=== PATIENT | female | born 1970 | race Caucasian/White ===

== ENCOUNTER 2017-12-16 19:19 | Emergency (ER) | payer BC ==
[2017-12-16 19:29] VITALS: BP 113/71
--- NOTE | 2017-12-16 19:32 | EDPHY ---
H & P Stated Complaint: Fever and sore throat Time Seen by Provider: 12/16/17 19:32 - Personal History LMP (Females 10-55): Over 28 Days Ago Current Tetanus/Diphtheria Vaccine: Yes Current Tetanus Diphtheria and Acellular Pertussis (TDAP): Yes - Medical/Surgical History Hx Asthma: No Hx Chronic Respiratory Disease: No Hx Diabetes: No Hx Cardiac Disease: No Hx Renal Disease: No Hx Cirrhosis: No Hx Alcoholism: No Hx HIV/AIDS: No Hx Splenectomy or Spleen Trauma: No Other PMH: lithotripsy,cholecystectomy, breast augmentation, tummy tuck, - Social History Smoking Status: Never smoked Constitutional: Initial Vital Signs Temperature (C) 39.4 C H 12/16/17 19:23 Heart Rate 130 H 12/16/17 19:23 Respiratory Rate 18 12/16/17 19:23 Blood Pressure 113/71 12/16/17 19:23 O2 Sat (%) 95 12/16/17 19:23 O2 Delivery Mode Room Air Allergies/Adverse Reactions: codeine Allergy (Verified 12/16/17 19:29) Sulfa (Sulfonamide Antibiotics) Allergy (Verified 12/16/17 19:29) tramadol Allergy (Verified 12/16/17 19:29) Home Medications: Medication Instructions Recorded Cephalexin [Keflex (RX)] 500 mg PO TID #30 cap 12/16/17 Ibuprofen [Motrin] 800 mg PO Q8 #20 tab 12/16/17 Lasix 12/16/17 Trileptal 12/16/17 Xanax 12/16/17 Medical Decision Making ED Course/Re-evaluation: CHIEF COMPLAINT: Sore throat HISTORY OF PRESENT ILLNESS: The patient is a 46 y/o female complaining of a waxing and waning sore throat onset 3 days ago. She first noticed mild pain on Monday that improved within 24 hours. Yesterday her pain returned and she developed associated hoarseness. Today her pain was worse and associated with a fever, mild cough, and myalgias. She took Tylenol 6.5 hours ago with temporary moderate improvement. She denies ear pain, dyspnea, chest pain, vomiting, abdominal pain, diarrhea, difficulty swallowing. REVIEW OF SYSTEMS: A 10 point review of systems was performed and is negative with the exception of the elements mentioned in the history of present illness. PHYSICAL EXAM: HR 130, BP, O2 Sat, RR. Temp noted 39.4C General Appearance: Alert, well hydrated, appropriate, and non-toxic appearing. Head: Atraumatic without scalp tenderness or obvious injury Eyes: Pupils equal, round, reactive to light and accommodation, EOMI, no trauma , no injection. Ears: Clear bilaterally, no perforation, normal landmarks Nose: Atraumatic, no rhinorrhea, clear. Throat: There is erythema without exudates, no lesions, normal tonsils, mucus membranes moist. Neck: Supple, nontender, no lymphadenopathy. Respiratory: No retractions, no distress, no wheezes, and no accessory muscle use. Lungs are clear to auscultation bilaterally. Cardiovascular: Regular rate and rhythm, no murmurs, rubs, or gallops. Good capillary refill all extremities. Gastrointestinal: Abdomen is soft, nontender, non-distended, no masses, no rebound, no guarding, no peritoneal signs. Musculoskeletal: Normal active ROM of all extremities, atraumatic. Neurological: Alert, appropriate, and interactive. Nonfocal. Skin: No rashes, good turgor, no nodules on palpation. Past medical history: leg edema of unknown etiology on Lasix, on Xanax Past surgical history: lithotripsy,cholecystectomy, breast augmentation, tummy tuck Family history: Noncontributory Social history: Lives in [place]. . DIFFERENTIAL DIAGNOSIS: The differential diagnosis for the patient's fever included but was not limited to bacterial pharyngitis, pneumonia, urinary tract infection, viral syndrome, meningitis, and sepsis. MEDICAL DECISION MAKING: Exam shows pharyngeal erythema indicating pharyngitis. Plan for treatment with 40g PO prednisone here, dose of Keflex and ibuprofen and discharge with script for Keflex and standard care instructions. Return precautions discussed. - Data Points Medications Given: Discontinued Medications Cephalexin HCl (Keflex) 500 mg PO EDNOW ONE PRN Reason: Protocol Stop: 12/16/17 20:01 Last Admin: 12/16/17 20:02 Dose: 500 mg Ibuprofen (Motrin) 600 mg PO EDNOW ONE Stop: 12/16/17 20:01 Last Admin: 12/16/17 20:02 Dose: 600 mg Prednisone (Prednisone) 40 mg PO EDNOW ONE Stop: 12/16/17 20:00 Last Admin: 12/16/17 20:02 Dose: 40 mg Departure - Departure Disposition: Home, Routine, Self-Care Clinical Impression: Bacterial pharyngitis Condition: Good Instructions: Cephalexin (By mouth), Pharyngitis (ED), Fever in Adults (ED) Additional Instructions: 1. Take Keflex as prescribed for infection. Be sure to complete the entire prescription even if you feel better. 2. Take 800mg ibuprofen (Motrin) every 8 hours for pain and fever over the next few days. 3. Follow up with primary care provider for unimproved symptoms over the next 2- [address] Sarmiento is a local flavorer you can follow up with if needed. Referrals: Kim Silver DO [Doctor of Osteopathy] - As per Instructions Jovanny Sarmiento MD [[facility] [place] [place] Primary Care Provider] - As per Instructions Prescriptions: Cephalexin [Keflex (RX)] 500 mg PO TID #30 cap Ibuprofen [Motrin] 800 mg PO Q8 #20 tab Report Scribed for: Erich Correa Report Scribed by: Maryellen Browning Date of Report: 12/16/17 Time of Report: 19:36
[2017-12-16] MEDS ORDERED: IBUPROFEN 600 MG TAB PO ONE ×2 (19:57→20:00)
[2017-12-16] MEDS ORDERED: CEPHALEXIN 500 MG CAP PO ONE ×2 (19:57→20:00)
[2017-12-16] MEDS ORDERED: predniSONE 20 MG TAB ONE (19:57)
[2017-12-16] MEDS ORDERED: predniSONE 20 MG TAB PO ONE (19:59)
== END 2017-12-16 20:25 | disposition home or self-care (01) ==
DX: J02.9 Acute pharyngitis, unspecified (principal)
CPT/HCPCS: J7512

== ENCOUNTER 2018-01-31 07:35 | Inpatient (IN) | payer BC ==
[2018-01-31] MEDS ORDERED: ONDANSETRON 4 MG/2 ML VIAL IVP ONE (08:09)
[2018-01-31] MEDS ORDERED: LORazepam 2 MG/ML INJ IVP ONE ×2 (08:25→10:43)
[2018-01-31 08:32] LABS: PLATELET COUNT 396 10^3/uL (150-400)
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
[2018-01-31] MEDS ORDERED: NS 1,000 ML IV ONE (08:55)
[2018-01-31] MEDS ORDERED: LORazepam 2 MG/ML INJ IVP PRN (12:45)
[2018-01-31] MEDS ORDERED: ONDANSETRON DISINTEGRATING 4 MG TAB PO PRN (12:45)
[2018-01-31] MEDS ORDERED: ONDANSETRON 4 MG/2 ML VIAL IVP PRN (12:45)
[2018-01-31] MEDS ORDERED: POTASSIUM CL 20 MEQ/15 ML UDCUP PO ONE (12:50)
[2018-01-31] MEDS: chlordiazePOXIDE 25 MG CAP PO SCH ×3 (13:29→20:23)
--- NOTE | 2018-01-31 13:44 | GHP ---
DATE OF ADMISSION: 01/31/2018 HISTORY OF PRESENT ILLNESS: The patient is a 47-year-old female with a history of anxiety, treated w ith 2 mg of Xanax four times daily. She has been prescribed this by a physician who previously had p racticed in the [facility] but subsequently moved out of state and providing her with prescrip tions. She began to run low on her on Xanax and she checked her prescription and the number was not included, and so she was worried that she would run out. This is complicated by the Day weeken d. Today is the Monday after . On Monday, she had normal doses and Monday she began to taper them, taking 3 mg at night, and then yesterday she just had 1 mg around 4 p.m. Last night she felt tremulous and anxious, and then this morning continued to feel so. She also had some diarrhea and some nausea. She drank a fair amount of alcohol last night, although she denies drinking alcohol this morning. She had a blood alcohol level of 80 this morning. She also has been taking Alleene for pain in her leg, and she has been self tapering those over time be cause, again, this prescription last as well. She actually was recently given a prescription for oxycodone, but she never filled it. The patient has a history of bipolar and has been on an SSRI in the past, but is not currently on the m. The psychiatrist's name is Dr. Kennedy Zamorano. REVIEW OF SYSTEMS: Complete 10-point review of systems conducted and negative except as noted in the HPI. PAST MEDICAL HISTORY: Chronic leg pain, panic, anxiety. SOCIAL HISTORY: She lives with her . No tobacco. 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 She has no children. A stepson stays there on Fridays. FAMILY HISTORY: Reviewed and unremarkable. ALLERGIES: Codeine, sulfa, tramadol. HOME MEDICATIONS: Tylenol, alprazolam 2 q.i.d., ibuprofen, oxcarbazepine, recently been off. Her la st opiates were last week. PHYSICAL EXAMINATION: PRESENTING VITALS: Temp 36.6, blood pressure 125/77, breathing 18 times a min [place], 98% on room air. GENERAL: No acute distress. HEENT: Sclerae anicteric. Oropharynx clear. M ucous membranes moist. NECK: Supple. No lymphadenopathy or JVD. LUNGS: Clear to auscultation timothy aterally. HEART: S1, S2. Tachycardic. ABDOMEN: Soft, nontender, nondistended. LOWER EXTREMITIES : No edema. Calves nontender. SKIN: Without rash. NEUROLOGIC: Nonfocal. LABS: Tylenol level 12. Benzos are none, negative. Alcohol level of 80 at 7:40 this morning. Sodi um 141, potassium 3.0, chloride 101, bicarb 20, BUN 40, creatinine 1.6. LFTs normal. Alkaline phosp hatase slightly elevated at 129. White count 6.2, hematocrit 46, platelets are 396 1000. There is n o imaging. I have discussed the case with Dr. Milka Sheffield. ASSESSMENT AND PLAN: A 47-year-old female with benzodiazepine withdrawal and probably resolving opia te withdrawal. 1. Benzodiazepine withdrawal. 2 mg four times a day of Xanax is a fairly hefty dose, especially in this 43 kg woman. She has been on this for years and I would anticipate her withdrawal would continu e. I will start her on Librium 25 three times daily. She received 2 mg of Ativan in the emergency d epartment. 2. Opiate withdrawal. I commend her decision to get off opiates. I have written for clonidine 0.1 twice daily scheduled. We will follow. 3. Hypokalemia. This is likely secondary to perhaps some vomiting. We will give her 40 mg of p.o. potassium. 4. Acute kidney injury, probably hypovolemic. We will continue the intravenous fluids that were sta rted in the emergency department. 5. Prophylaxis with Lovenox 30. DISPOSITION: Inpatient status. /[id number]/MODL
[2018-01-31] MEDS: ACETAMINOPHEN 325 MG TAB PO PRN (14:07)
--- NOTE | 2018-01-31 15:55 | ASMTLACE ---
LAN Acuity / Level of Answers: Yes Care: Did the patient have an inpatient admission? Comorbidities - select Answers: Opioid dependence all that apply / Chronic pain # of Emergency department Answers: 1-2 visits in the last 6 months Social determinants Answers: History of substance abuse (ETOH, street drugs, prescription drugs, etc.) Mental health diagnosis (anxiety, depression, pers onality disorders, etc.) Score: 14 Date Signed: 01/31/2018 03:54 PM Electronically Signed By:Kayley Main RN
--- NOTE | 2018-01-31 16:04 | PDMN ---
Medical Necessity Medical necessity: [facility] M595 Substance-Related Disorders: 47 y/o w/ acute benzodiazepine w/d and opiate w/d. RTC care with Librium and clonidine prescribed and cont to monitor as MD anticipates withdrawal will continue given the current doses she has been on for years. Pt w/ tremors, is tachy HR 125, labile BP SBG 80s-160s, Hypokalemia (K 3.0), acute kidney injury noted (cr 1.6) . IV fluids started.
--- NOTE | 2018-01-31 16:10 | ASMTCMCOM ---
CM Note CM Note Notes: Pt presented to the ED via EMS from home for benzodiazepine withdrawal symptoms. Pt states she has been taking 2mg of Xanax four times a day for many years. She has also been taking [place] 7.5/325 approx 6x/day. Her prescribing physician was psychiatrist Dr Kennedy Zamorano who used to live in [place] but is now in [place] but has still been providing pt w/rxns. Dr Zamorano is no longer able to provide prescriptions and so patient has been without [place] for several days and has tapered her Xanax down. Pt also states she drinks alcohol and "more than I should." Pt also has a history of bipolar disorder. Pt's , Micah, is at bedside. Pt is employed. Exact DC needs TBD; anticipate DC home w/family w/outpatient substance abuse resources, new psychiatrist referral and primary care follow-up. CM to follow. Date Signed: 01/31/2018 04:09 PM Electronically Signed By:Kayley Main RN
[2018-01-31] MEDS: NS 1,000 ML IV SCH (16:24)
[2018-01-31] MEDS: LORazepam 1 MG TAB PO PRN ×2 (16:53→21:41)
[2018-01-31] MEDS: OXcarbazepine 300 MG TAB PO SCH (20:22)
[2018-02-01] MEDS: NS 1,000 ML IV SCH ×2 (00:57→07:55)
[2018-02-01] MEDS: LORazepam 1 MG TAB PO PRN ×5 (02:34→21:49)
[2018-02-01] MEDS: chlordiazePOXIDE 25 MG CAP PO SCH (07:47)
[2018-02-01] MEDS: ENOXAPARIN 30 MG/0.3 ML SYR SC SCH (07:48)
--- NOTE | 2018-02-01 10:01 | HOSPPROG ---
Hospitalist Progress Note Assessment/Plan: 47 yo F w bipolar, severe anxiety, benzo withdrawal benzo withdrawal: improved dc librium, IV ativan anxiety: ideally she should be on an ssri states she had been on paxil and increased panic attacks DOES WISH TO STAY OFF XANAX i let her know we would not be prescribing xanax- 1. start klonopin 1 bid 2. start propranolol 10 tid 3. trazodone for sleep 4. needs competent outpatient psychiatrist 5. continue prn ativan for now, none on dc 6. elizabeth cormier to see today opiate withdrawal: appears to have resolved had stopped takking days prior ETHAN: pre renal, resolved dispo: stay today for med initiation Subjective: less tachycardic. spent 40' at bedside discussing plan of care Objective: Vital Signs Temp Pulse Resp BP Pulse Ox 36.8 C 103 H 19 99/78 L 97 02/01/18 07:39 02/01/18 08:00 02/01/18 08:00 02/01/18 08:00 02/01/18 08:00 Laboratory Results 02/01/18 04:14 01/31/18 02/01/18 02/02/18 05:59 05:59 05:59 Intake Total 3850 Balance 3850 - Physical Exam Constitutional: no apparent distress, other (mild anxiety) Eyes: PERRL, anicteric sclera Ears, Nose, Mouth, Throat: moist mucous membranes, hearing normal Cardiovascular: regular rate and rhythym, no murmur, rub, or gallop, No tachycardia Respiratory: no respiratory distress, no rales or rhonchi Gastrointestinal: normoactive bowel sounds, soft, non-tender abdomen Genitourinary: no bladder fullness, No hunt in urethra Skin: warm, normal color Musculoskeletal: full muscle strength Neurologic: AAOx3 Psychiatric: interacting appropriately ICD10 Worksheet Patient Problems: Problems Problem Status Onset Acute kidney injury Acute Alcohol abuse Acute Benzodiazepine withdrawal Acute
[2018-02-01] MEDS: clonazePAM 1 MG TAB PO SCH ×2 (11:03→21:11)
[2018-02-01] MEDS: PROPRANOLOL HCL 10 MG TAB PO SCH ×3 (11:04→21:11)
--- NOTE | 2018-02-01 16:05 | ASMTCMCOM ---
CM Note CM Note Notes: Pt was admited for benzo withdrawl, she also has a diagnosis of Bipolar disorder. She lives at home with her and works. She was seen by Roxie Valderrama today (see note) and will dc home w/support of her . Pt given resources by JESSI and will f/u outpt for ongoing benzo tapering care. DC Plan: Independent Date Signed: 02/01/2018 04:04 PM Electronically Signed By:Roxie Eduardo RN
[2018-02-01] MEDS ORDERED: traZODone 50 MG TAB PO SCH (21:00)
[2018-02-01] MEDS: OXcarbazepine 300 MG TAB PO SCH (21:13)
[2018-02-02] MEDS: LORazepam 1 MG TAB PO PRN ×3 (01:42→10:21)
[2018-02-02] MEDS: ACETAMINOPHEN 325 MG TAB PO PRN ×2 (01:43→12:57)
[2018-02-02] MEDS: PROPRANOLOL HCL 10 MG TAB PO SCH (09:44)
[2018-02-02] MEDS: clonazePAM 1 MG TAB PO SCH (09:44)
[2018-02-02] MEDS: ENOXAPARIN 30 MG/0.3 ML SYR SC SCH (09:45)
[2018-02-02] MEDS: chlordiazePOXIDE 25 MG CAP PO SCH ×2 (10:49→11:12)
--- NOTE | 2018-02-02 12:13 | ASMTCMCOM ---
CM Note CM Note Notes: Pt's left foot abscess was addressed in surgery on 01/31. He remains in significant pain. He has MRSA. His Type 1 diabetes does not appear to be under good control. He continues on IV antibiotics. CM will follow. D/C Plan: TBD Date Signed: 02/02/2018 12:12 PM Electronically Signed By:Gabi Cuevas
[2018-02-02 12:48] VITALS: BP 96/62
--- NOTE | 2018-02-02 15:11 | PDDCSUM ---
Discharge Summary Discharge Summary: Admission Date: 01/31/2018 Discharge Date: 02/02/2018 Consults: Psychiatry Hospital Problem List: 47 yo F w bipolar, severe anxiety, benzo withdrawal Benzo withdrawal: improved - Patient did not tolerate Klonopin with increased anxiety/agitation - Discussed case with Dr. Benson, Psychiatry this AM, who recommended switching to Librium 50 mg QID until patient is able to followup with PCP and establish with Psychiatry for titration off of medication - Patient to followup with PCP for titration off of Librium in conjunction withPsychiatry, patient has concern that if she is tapered off of Librium without other medications she will have uncontrolled anxiety anxiety: ideally she should be on an ssri states she had been on paxil and increased panic attacks DOES WISH TO STAY OFF XANAX Continue propranolol 10 tid Needs competent outpatient psychiatrist opiate withdrawal: appears to have resolved had stopped taking days prior ETHAN: pre renal, resolved Time spent on discharge >35 minutes with >50% of time spent on patient education and counseling
== END 2018-02-02 16:00 | disposition home or self-care (01) | DRG 897 ==
LOC: EDUNIT# → F3E 13:12
PROVIDERS: ADMIT Internal Medicine; ATTEND Internal Medicine
DX: F13.239 Sedative, hypnotic or anxiolytic dependence with withdrawal, unspecified (principal); N17.9 Acute kidney failure, unspecified; F11.23 Opioid dependence with withdrawal; E86.9 Volume depletion, unspecified; F41.9 Anxiety disorder, unspecified
CPT/HCPCS: 80305; 96374; 97161-GP; G0480; J1650; J2060; J2405

== ENCOUNTER 2018-02-02 23:51 | Emergency (ER) | payer BC ==
[2018-02-03] MEDS ORDERED: LORazepam 2 MG/ML INJ IVP ONE ×2 (01:09→02:10)
[2018-02-03] MEDS ORDERED: NS 1,000 ML IV ONE (01:09)
[2018-02-03] MEDS ORDERED: LORazepam 2 MG/ML INJ ONE (01:09)
--- NOTE | 2018-02-03 01:11 | EDPHY ---
H & P Stated Complaint: LOSS MOTOR SKILLS, XANAX W/D / D/C'D TODAY FROM INPT Time Seen by Provider: 02/03/18 01:00 HPI/ROS: HPI The patient presents with generalized weakness since she awoke from sleep several hours ago. The patient was admitted to the hospital from January 31 to for benzodiazepine withdrawal symptoms. Here she improved receiving IV Ativan and was transition to Librium 50 mg four times daily as well as propanolol. She went home from the hospital earlier today and was feeling well. When she went to bed she was feeling fine, however she awoke several hours ago feeling like her body was made out of Jell-O. She has been unable to walk and her had to carry her into the emergency department. She vomited once. She does not believe she has had any seizures. REVIEW OF SYSTEMS 10 systems were reviewed and negative with the exception of the elements mentioned in the history of present illness. PMHx: Bipolar disorder, history of anxiety Soc Hx: Lives with her PHYSICAL General Appearance: Alert, no distress Eyes: Pupils equal and round no pallor or injection ENT, Mouth: Mucous membranes moist Respiratory: There are no retractions, lungs are clear to auscultation Cardiovascular: Regular rate and rhythm Gastrointestinal: Abdomen is soft and non-tender, no masses, bowel sounds normal Neurological: A&O, moves all extremities, 5/5 strength in upper and lower extremities, normal finger to nose testing Skin: Warm and dry, no rashes Musculoskeletal: Neck is supple non tender Extremities: symmetrical, full range of motion Psychiatric: Patient is oriented X 3, there is no agitation Source: Patient Exam Limitations: No limitations - Personal History LMP (Females 10-55): Unknown Current Tetanus Diphtheria and Acellular Pertussis (TDAP): Yes - Medical/Surgical History Hx Asthma: No Hx Chronic Respiratory Disease: No Hx Diabetes: No Hx Cardiac Disease: No Hx Renal Disease: No Hx Cirrhosis: No Hx Alcoholism: No Hx HIV/AIDS: No Hx Splenectomy or Spleen Trauma: No Other PMH: lithotripsy,cholecystectomy, breast augmentation, tummy tuck, - Social History Smoking Status: Never smoked Constitutional: Initial Vital Signs Temperature (C) 36.9 C 02/03/18 00:00 Heart Rate 97 02/03/18 00:00 Respiratory Rate 16 02/03/18 00:00 Blood Pressure 100/73 02/03/18 00:00 O2 Sat (%) 95 02/03/18 00:00 O2 Delivery Mode Room Air Allergies/Adverse Reactions: codeine Allergy (Verified 12/16/17 19:29) Sulfa (Sulfonamide Antibiotics) Allergy (Verified 12/16/17 19:29) tramadol Allergy (Verified 12/16/17 19:29) Home Medications: Medication Instructions Recorded Acetaminophen [Tylenol 325mg (*)] 650 mg PO DAILY 01/31/18 Ibuprofen [Motrin (*)] 400 mg PO DAILY PRN 01/31/18 OXcarbazepine [Trileptal 300mg (*)] 1,200 mg PO HS #120 tab 02/02/18 Propranolol HCl [Inderal 10mg (*)] 10 mg PO TID #90 tab 02/02/18 chlordiazePOXIDE [Librium 25 mg 50 mg PO QID #240 cap 02/02/18 (*)] Medical Decision Making Differential Diagnosis: 47-year-old female, recently discharged from the hospital for benzodiazepine withdrawal presents with return of her symptoms, most prominently generalized weakness, shakiness, feelings like she may have a panic attack. It does not seem that she has had a seizure. She is taking Librium 50 mg four times daily currently as well as propanolol. Physical exam is unremarkable here and she has no motor weakness on her exam. I will treat her with Ativan and check basic labs. Labs were checked and were unremarkable. Patient was able to walk in the emergency department on several occasions with a normal gait. She was given Ativan twice with improvement in her symptoms. I have provided her with reassurance that she should be taking her Librium as prescribed and this medication should be appropriate to treat her benzodiazepine withdrawal. She was taking Xanax 8 mg daily so it may take some time for her to completely be out of her withdrawals. I observed her for about 6 hr and she had no seizures here. I will discharge her home where she lives with her . - Data Points Laboratory Results: Laboratory Results 02/03/18 00:10 02/03/18 00:10 02/03/18 02/03/18 02/03/18 02:09 00:10 00:10 WBC 8.17 10^3/uL 10^3/uL (3.80-9.50) RBC 4.82 10^6/uL 10^6/uL (4.18-5.33) Hgb 15.1 g/dL g/dL (12.6-16.3) Hct 41.7 % % (38.0-47.0) MCV 86.5 fL fL (81.5-99.8) MCH 31.3 pg pg (27.9-34.1) MCHC 36.2 g/dL g/dL (32.4-36.7) RDW 12.5 % % (11.5-15.2) Plt Count 345 10^3/uL 10^3/uL (150-400) MPV 10.1 fL fL (8.7-11.7) Neut % (Auto) 55.8 % % (39.3-74.2) Lymph % (Auto) 35.1 % % (15.0-45.0) [place] % (Auto) 7.2 % % (4.5-13.0) Eos % (Auto) 0.7 % % (0.6-7.6) Baso % (Auto) 1.0 % % (0.3-1.7) Nucleat RBC Rel Count 0.0 % % (0.0-0.2) Absolute Neuts (auto) 4.55 10^3/uL 10^3/uL (1.70-6.50) Absolute Lymphs (auto) 2.87 10^3/uL 10^3/uL (1.00-3.00) Absolute Monos (auto) 0.59 10^3/uL 10^3/uL (0.30-0.80) Absolute Eos (auto) 0.06 10^3/uL 10^3/uL (0.03-0.40) Absolute Basos (auto) 0.08 10^3/uL 10^3/uL (0.02-0.10) Absolute Nucleated RBC 0.00 10^3/uL 10^3/uL (0-0.01) Immature Gran % 0.2 % % (0.0-1.1) Immature Gran # 0.02 10^3/uL 10^3/uL (0.00-0.10) Sodium 137 mEq/L mEq/L (135-145) Potassium 3.3 mEq/L mEq/L (3.3-5.0) Chloride 99 mEq/L mEq/L (97-110) Carbon Dioxide 23 mEq/l mEq/l (22-31) Anion Gap 15 mEq/L mEq/L (8-16) BUN 32 mg/dL H mg/dL (7-23) Creatinine 1.0 mg/dL mg/dL (0.6-1.0) Estimated GFR 60 Glucose 163 mg/dL H mg/dL (70-100) Calcium 10.0 mg/dL mg/dL (8.5-10.4) Total Bilirubin 0.3 mg/dL mg/dL (0.1-1.4) AST 36 IU/L IU/L (14-46) ALT 32 IU/L IU/L (9-52) Alkaline Phosphatase 110 IU/L IU/L (38-126) Creatine Kinase 69 IU/L IU/L (0-156) Total Protein 8.3 g/dL H g/dL (6.3-8.2) Albumin 5.0 g/dL g/dL (3.5-5.0) Urine Color COLORLESS Urine Appearance CLEAR Urine pH 6.0 (5.0-7.5) Ur Specific [place] 1.003 (1.002-1.030) Urine Protein NEGATIVE (NEGATIVE) Urine Ketones NEGATIVE (NEGATIVE) Urine Blood NEGATIVE (NEGATIVE) Urine Nitrate NEGATIVE (NEGATIVE) Urine Bilirubin NEGATIVE (NEGATIVE) Urine Urobilinogen NEGATIVE EU EU (0.2-1.0) Ur Leukocyte Esterase NEGATIVE (NEGATIVE) Urine Glucose NEGATIVE (NEGATIVE) Ethyl Alcohol < 10 mg/dL mg/dL (0-10) Medications Given: Discontinued Medications Chlordiazepoxide HCl (Librium) 50 mg PO EDNOW ONE Stop: 02/03/18 05:09 Last Admin: 02/03/18 05:10 Dose: 50 mg Sodium Chloride (Ns) 1,000 mls @ 0 mls/hr IV EDNOW ONE; Wide Open PRN Reason: Protocol Stop: 02/03/18 01:10 Last Admin: 02/03/18 01:11 Dose: 1,000 mls Lorazepam (Ativan Injection) 1 mg IVP EDNOW ONE Stop: 02/03/18 01:10 Last Admin: 02/03/18 01:12 Dose: 1 mg Lorazepam (Ativan Injection) 1 mg IVP ONCE ONE Stop: 02/03/18 02:11 Last Admin: 02/03/18 02:22 Dose: 1 mg Departure - Departure Disposition: Home, Routine, Self-Care Clinical Impression: Weakness, Benzodiazepine withdrawal Condition: Good Instructions: Weakness (ED) Additional Instructions: Please continue to take your Librium and propanolol as prescribed. You should return to the emergency department if your worse in any way. If you experience these symptoms again, I do recommend that you take your Librium dose early and wait to see if this improves her symptoms. Referrals: Shana Andrade MD [Primary Care Provider] - As per Instructions
[2018-02-03 01:19] LABS: PLATELET COUNT 345 10^3/uL (150-400)
[2018-02-03 01:25] LABS: CREATINE KINASE 69 IU/L (0-156)
[2018-02-03] MEDS ORDERED: chlordiazePOXIDE 25 MG CAP PO ONE (05:08)
[2018-02-03 05:14] VITALS: BP 99/73
== END 2018-02-03 05:42 | disposition home or self-care (01) ==
DX: F13.20 Sedative, hypnotic or anxiolytic dependence, uncomplicated (principal); E86.9 Volume depletion, unspecified; F31.9 Bipolar disorder, unspecified
CPT/HCPCS: 96374; G0480; J2060

== ENCOUNTER 2018-02-08 14:14 | Inpatient (IN) | payer BC ==
[2018-02-08] MEDS ORDERED: NS 1,000 ML IV ONE ×3 (15:00→17:57)
[2018-02-08] MEDS ORDERED: LORazepam 2 MG/ML INJ IVP ONE ×2 (15:00→17:11)
[2018-02-08 15:21] LABS: PLATELET COUNT 283 10^3/uL (150-400)
[2018-02-08 15:29] LABS: INR 0.95 (0.83-1.16); PROTIME(PATIENT) 12.9 SEC (12.0-15.0)
[2018-02-08 15:39] LABS: CREATINE KINASE 60 IU/L (0-156)
--- NOTE | 2018-02-08 15:49 | EDPHY ---
H & P Stated Complaint: Sent here by PCP for creatinine of 1.94. Time Seen by Provider: 02/08/18 14:34 HPI/ROS: CHIEF COMPLAINT: Lab abnormalities, anxiety HISTORY OF PRESENT ILLNESS: This is a 47 year old female who has been seen in our ED on two occasions over past 2 weeks. Initially seen as she was withdrawling from xanax, which she had taken for 20 years. At that visit patient noted to have renal insufficiency with a creatinine of 1.6. This resolved and patient was discharged on librium as she had an allergic reaction to klonopin. She represented after discharge with ongoing symptoms of benzo withdrawl, but was treated in ED and discharged. Yesterday she saw her PCP who is helping with her withdrawl (utilizing a long acting xanax with a slow taper). Patient was informed today that her creatinine in the PCP office was 1.9. She reports ongoing significant nausea and diarrhea. Ongoing anxiety as well. No fever, chills, chest pain, shortness of breath, palpitations, urinary complaints, headache, lightheadedness. REVIEW OF SYSTEMS: A comprehensive 10 system review of systems was reviewed and is otherwise negative aside from elements mentioned in the history of present illness. PAST MEDICAL HISTORY: Benzodiazepine addiction, opiate addiction. SOCIAL HISTORY: Here with . Denies illicit drug use. VITAL SIGNS Reviewed by me. Initially hypotensive at 92/60 GENERAL: Well-developed, well-nourished, seems anxious. HEENT: Atraumatic. Eyes: No icterus, no injection. No nystagmus. Mouth: moist mucous membranes. No erythema or lesions. Neck: supple with no adenopathy. LUNGS: Clear to auscultation bilaterally, no wheezes, rhonchi or rales. CARDIAC: Regular rate and rhythm, no rubs, murmurs or gallops. ABDOMEN: Soft, nontender, nondistended, bowel sounds normal. BACK: No CVA tenderness. EXTREMITIES: No trauma. No edema. Range of motion is normal throughout. No tremor. NEURO: Alert and oriented, grossly nonfocal. SKIN: Warm and dry, no rash. PSYCHIATRIC: Normal mentation, anxious. - Personal History LMP (Females 10-55): Post Menopausal Current Tetanus Diphtheria and Acellular Pertussis (TDAP): Yes - Medical/Surgical History Hx Asthma: No Hx Chronic Respiratory Disease: No Hx Diabetes: No Hx Cardiac Disease: No Hx Renal Disease: No Hx Cirrhosis: No Hx Alcoholism: No Hx HIV/AIDS: No Hx Splenectomy or Spleen Trauma: No Other PMH: lithotripsy,cholecystectomy, breast augmentation, tummy tuck, - Social History Smoking Status: Never smoked Constitutional: Initial Vital Signs Temperature (C) 36.6 C 02/08/18 14:18 Heart Rate 75 02/08/18 14:18 Respiratory Rate 16 02/08/18 14:18 Blood Pressure 92/60 L 02/08/18 14:18 O2 Sat (%) 96 02/08/18 14:18 O2 Delivery Mode Room Air Allergies/Adverse Reactions: codeine Allergy (Verified 02/10/18 10:59) Rash Sulfa (Sulfonamide Antibiotics) Allergy (Verified 02/10/18 10:59) tramadol Allergy (Verified 02/10/18 10:59) Rash Home Medications: Medication Instructions Recorded Acetaminophen [Tylenol 325mg (*)] 325 - 650 mg PO Q6 PRN 01/31/18 Ibuprofen [Motrin (*)] 400 mg PO DAILY PRN 01/31/18 OXcarbazepine [Trileptal 300mg (*)] 1,200 mg PO HS #120 tab 02/02/18 Gabapentin [Neurontin 100 MG (*)] 300 mg PO TID #90 cap 02/10/18 LORazepam [Ativan (*)] 0.5 - 1 mg PO Q8HRS PRN #20 tab 02/10/18 LORazepam [Ativan (*)] 2 mg PO Q6H #56 tab 02/10/18 Potassium Chloride Po [Potassium 20 meq PO DAILY #30 udcup 02/10/18 Chloride 20 mg/15 ml (*)] Medical Decision Making ED Course/Re-evaluation: Iv placed. Normal saline and zofran administered. Patient received Ativan IV. Labs demonstrate a creatinine of 1.2, lipase of 467. Potassium at 2.4 was very delayed in being resulted. Once resulted, I discussed admission to the hospital for the patient. While initially reluctant to be admitted, patient and eventually agreed to inpatient monitoring of labs, intake and output, treatment of nausea and diarrhea. Course discussed with hospitalist service. Differential Diagnosis: Diff dx considered included benzo withdrawl syndrome, electrolyte abnormalities , panic attack, diarrhea, benzo dependency, dehydration. Consult/Admit Bed Type: [facility] - Data Points Laboratory Results: Laboratory Results 02/09/18 05:13 02/09/18 05:13 Medications Given: Discontinued Medications Gabapentin (Neurontin) 100 mg PO TID [facility] Stop: 08/07/18 21:59 Last Admin: 02/09/18 08:03 Dose: 100 mg Gabapentin (Neurontin) 300 mg PO TID [facility] Stop: 08/07/18 21:59 Last Admin: 02/10/18 08:40 Dose: 300 mg Sodium Chloride (Ns) 1,000 mls @ 0 mls/hr IV ONCE ONE; Wide Open PRN Reason: Protocol Stop: 02/08/18 15:01 Last Admin: 02/08/18 15:10 Dose: 1,000 mls Potassium Chloride (Potassium Cl 10 Meq (Premix)) 100 mls @ 100 mls/hr IV EDNOW ONE Stop: 02/08/18 17:23 Last Admin: 02/08/18 17:53 Dose: 100 mls Sodium Chloride (Ns) 1,000 mls @ 3,000 mls/hr IV ONCE ONE Stop: 02/08/18 17:02 Last Admin: 02/08/18 16:44 Dose: 1,000 mls Sodium Chloride (Ns) 1,000 mls @ 250 mls/hr IV ONCE ONE Stop: 02/08/18 21:56 Last Admin: 02/08/18 19:57 Dose: 1,000 mls Sodium Chloride (Ns) 1,000 mls @ 100 mls/hr IV CONT KOBE Stop: 08/07/18 19:44 Last Admin: 02/09/18 11:37 Dose: 1,000 mls Magnesium Sulfate/Dextrose (Magnesium Sulf 1 Gm (Premix)) 100 mls @ 100 mls/hr IV ONCE ONE Stop: 02/08/18 23:24 Last Admin: 02/08/18 22:56 Dose: 100 mls Sodium Chloride (Ns) 1,000 mls @ 1,000 mls/hr IV ONCE ONE Stop: 02/09/18 01:18 Last Admin: 02/09/18 00:31 Dose: 1,000 mls Sodium Chloride (Ns) 1,000 mls @ 1,000 mls/hr IV ONCE ONE Stop: 02/09/18 01:44 Last Admin: 02/09/18 00:31 Dose: Not Given Magnesium Sulfate/Dextrose (Magnesium Sulf 1 Gm (Premix)) 100 mls @ 100 mls/hr IV ONCE ONE Stop: 02/09/18 07:34 Last Admin: 02/09/18 07:03 Dose: 100 mls Calcium Gluconate 1 gm/ (Dextrose) 60 mls @ 120 mls/hr IV ONCE ONE Stop: 02/09/18 07:29 Last Admin: 02/09/18 08:02 Dose: 60 mls Potassium Chloride/Sodium Chloride (Ns W/ 20 Kcl/L) 1,000 mls @ 75 mls/hr IV CONT KOBE Stop: 02/10/18 01:04 Last Admin: 02/09/18 13:11 Dose: 1,000 mls Magnesium Sulfate (Magnesium Sulf 2 Gm (Premix)) 50 mls @ 50 mls/hr IV ONCE ONE Stop: 02/09/18 12:45 Last Admin: 02/09/18 13:11 Dose: 50 mls Calcium Gluconate 1 gm/ (Dextrose) 60 mls @ 120 mls/hr IV ONCE ONE Stop: 02/10/18 08:44 Last Admin: 02/10/18 08:43 Dose: 60 mls Lorazepam (Ativan Injection) 1 mg IVP EDNOW ONE Stop: 02/08/18 15:01 Last Admin: 02/08/18 15:15 Dose: 1 mg Lorazepam (Ativan Injection) 1 mg IVP EDNOW ONE Stop: 02/08/18 17:12 Last Admin: 02/08/18 17:30 Dose: 1 mg Lorazepam (Ativan) 0.5 - 1 mg PO Q8HRS PRN PRN Reason: Anxiety, Able to Take PO Stop: 08/07/18 17:56 Last Admin: 02/10/18 10:54 Dose: 1 mg Lorazepam (Ativan) 2 mg PO Q6H KOBE Stop: 08/07/18 19:44 Last Admin: 02/10/18 08:41 Dose: 2 mg Ondansetron HCl (Zofran) 4 mg IVP EDNOW ONE Stop: 02/08/18 16:26 Last Admin: 02/08/18 16:42 Dose: 4 mg Oxcarbazepine (Trileptal) 1,200 mg PO HS KOBE Stop: 08/07/18 20:59 Last Admin: 02/09/18 22:43 Dose: 1,200 mg Potassium Chloride (Klor-Con) 40 meq PO ONCE ONE Stop: 02/08/18 16:25 Last Admin: 02/08/18 16:42 Dose: 40 meq Potassium Chloride (Klor-Con) 40 meq PO ONCE ONE PRN Reason: Protocol Stop: 02/08/18 22:28 Last Admin: 02/08/18 23:04 Dose: 40 meq Potassium Chloride (Klor-Con) 10 - 40 meq PO ONCE ONE PRN Reason: Protocol Stop: 02/09/18 06:34 Last Admin: 02/09/18 07:03 Dose: 40 meq Potassium Chloride (Klor-Con) 20 meq PO ONCE ONE PRN Reason: Protocol Stop: 02/09/18 19:59 Last Admin: 02/09/18 21:40 Dose: 20 meq Potassium Chloride (Klor-Con) 10 - 40 meq PO ONCE ONE PRN Reason: Protocol Stop: 02/10/18 07:30 Last Admin: 02/10/18 08:42 Dose: 40 meq Potassium Chloride (Potassium Chloride Oral Liquid) 20 meq PO DAILY KOBE Stop: 08/09/18 09:29 Last Admin: 02/10/18 10:31 Dose: 20 meq Departure - Departure Disposition: [facility] Clinical Impression: Hypokalemia, Benzodiazepine dependence Condition: Good
[2018-02-08] MEDS ORDERED: POTASSIUM Cl (KCl) 100 ML IV ONE (16:24)
[2018-02-08] MEDS ORDERED: POTASSIUM CL 20 MEQ TAB PO ONE (16:24)
[2018-02-08] MEDS ORDERED: ONDANSETRON 4 MG/2 ML VIAL IVP ONE (16:25)
[2018-02-08] MEDS ORDERED: PROMETHAZINE HCL 25 MG/ML INJ IVP PRN (17:57)
[2018-02-08] MEDS ORDERED: oxyCODONE IR 5 MG TAB PO PRN (17:57)
[2018-02-08] MEDS ORDERED: ONDANSETRON DISINTEGRATING 4 MG TAB PO PRN (17:57)
[2018-02-08] MEDS ORDERED: PROTOCOL K PHOSPHATE 1 DOSE IV PRN (17:57)
[2018-02-08] MEDS ORDERED: PROTOCOL POTASSIUM 1 DOSE MISC PRN (17:57)
[2018-02-08] MEDS ORDERED: PROTOCOL CALCIUM 1 DOSE IV PRN (17:57)
[2018-02-08] MEDS ORDERED: PROTOCOL MAGNESIUM 1 DOSE IV PRN (17:57)
[2018-02-08] MEDS ORDERED: HYDROCODONE/APAP 5/325 TAB PO PRN (17:57)
[2018-02-08] MEDS ORDERED: ACETAMINOPHEN 325 MG TAB PO PRN (17:57)
[2018-02-08] MEDS ORDERED: LORazepam 2 MG/ML INJ IVP PRN (17:57)
[2018-02-08] MEDS ORDERED: ONDANSETRON 4 MG/2 ML VIAL IVP PRN (17:57)
[2018-02-08] MEDS ORDERED: LORazepam 1 MG TAB ONE (19:34)
[2018-02-08] MEDS: LORazepam 1 MG TAB PO SCH (19:35)
--- NOTE | 2018-02-08 20:29 | PDGENHP ---
History and Physical - Chief Complaint n/v/d, xanax w/d - History of Present Illness 47 yo F with hx of anxiety and bipolar 2 for which 20 years ago she was started on xanax by her psychiatrist. He ultimately had her on a dose of 2mg four times per day. She states she was never told that this was a medication that should be used only in the short term, nor was she ever warned that stopping this medication could lead to severe and life threatening withdrawal. Last week she ran out of her medication as the doctor had forgotten to put a number of pills on the prescription form, she was out of xanax for 2 days when she developed essentially inability to ambulate, profound n/v and perhaps suffered a seizure. She was admitted to the hospital and treated for benzo withdrawal, and started on librium 50 mg qid as an alternative to the xanax. She very much wishes to get off benzodiazepines completely, but also to do this safely and with minimal side effects. She was taking the librium at home but despite that was continuing to have significant nausea and vomiting. She was having her withdrawal managed by her PCP Dr. Alicia until she was able to f/u with a new psychiatrist. She notes that taking the librium feels as if she has taken nothing, she was unable to work and was sent home for persistent n/v/diarrhea. She intermittently will become so weak that she cannot walk and is uncertain if she may have had a seizure again. She had labs yesterday per the request of her PCP and was noted to have a creatinine of 1.9 and was sent here for further evaluation, in the ER she was noted to have a K of 2.4 today with an improved creatinine of 1.2 History Information - Allergies/Home Medication List Allergies/Adverse Reactions: codeine Allergy (Unverified 02/08/18 18:33) Rash Sulfa (Sulfonamide Antibiotics) Allergy (Unverified 02/08/18 15:09) tramadol Allergy (Unverified 02/08/18 18:33) Rash Home Medications: Acetaminophen [Tylenol 325mg (*)] 325 - 650 mg PO Q6 PRN 01/31/18 [Last Taken Unknown] Ibuprofen [Motrin (*)] 400 mg PO DAILY PRN 01/31/18 [Last Taken 02/06/18] I have personally reviewed and updated: family history, medical history, social history, surgical history - Past Medical History psychiatric history - Surgical History Reports: no pertinent surgical hx - Family History Positive for: non-pertinent - Social History Smoking Status: Never smoked Alcohol Use: Rarely Drug Use: None Additional social history: , 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 Review of Systems Review of Systems: ROS: 10pt was reviewed & negative except for what was stated in HPI & below Physical Exam Physical Exam: Temp Pulse Resp BP Pulse Ox 36.8 C 71 14 87/54 L 95 02/08/18 19:22 02/08/18 19:22 02/08/18 19:22 02/08/18 19:22 02/08/18 19:22 Constitutional: appears nourished, uncomfortable Eyes: PERRL, anicteric sclera Ears, Nose, Mouth, Throat: moist mucous membranes, hearing normal Cardiovascular: no murmur, rub, or gallop, tachycardia, No edema Respiratory: no respiratory distress, no rales or rhonchi, clear to auscultation Gastrointestinal: normoactive bowel sounds, soft, non-tender abdomen Genitourinary: no bladder tenderness Skin: warm, normal color Musculoskeletal: full muscle strength Neurologic: AAOx3 Psychiatric: interacting appropriately, not anxious, not encephalopathic Lab Data & Imaging Review 02/08/18 15:10 02/08/18 15:10 WBC 5.73 10^3/uL (3.80-9.50) 02/08/18 15:10 RBC 4.30 10^6/uL (4.18-5.33) 02/08/18 15:10 Hgb 13.6 g/dL (12.6-16.3) 02/08/18 15:10 Hct 37.3 % (38.0-47.0) L 02/08/18 15:10 MCV 86.7 fL (81.5-99.8) 02/08/18 15:10 MCH 31.6 pg (27.9-34.1) 02/08/18 15:10 MCHC 36.5 g/dL (32.4-36.7) 02/08/18 15:10 RDW 12.8 % (11.5-15.2) 02/08/18 15:10 Plt Count 283 10^3/uL (150-400) 02/08/18 15:10 MPV 9.6 fL (8.7-11.7) 02/08/18 15:10 Neut % (Auto) 57.6 % (39.3-74.2) 02/08/18 15:10 Lymph % (Auto) 28.6 % (15.0-45.0) 02/08/18 15:10 [place] % (Auto) 11.0 % (4.5-13.0) 02/08/18 15:10 Eos % (Auto) 1.6 % (0.6-7.6) 02/08/18 15:10 Baso % (Auto) 1.0 % (0.3-1.7) 02/08/18 15:10 Nucleat RBC Rel Count 0.0 % (0.0-0.2) 02/08/18 15:10 Absolute Neuts (auto) 3.30 10^3/uL (1.70-6.50) 02/08/18 15:10 Absolute Lymphs (auto) 1.64 10^3/uL (1.00-3.00) 02/08/18 15:10 Absolute Monos (auto) 0.63 10^3/uL (0.30-0.80) 02/08/18 15:10 Absolute Eos (auto) 0.09 10^3/uL (0.03-0.40) 02/08/18 15:10 Absolute Basos (auto) 0.06 10^3/uL (0.02-0.10) 02/08/18 15:10 Absolute Nucleated RBC 0.00 10^3/uL (0-0.01) 02/08/18 15:10 Immature Gran % 0.2 % (0.0-1.1) 02/08/18 15:10 Immature Gran # 0.01 10^3/uL (0.00-0.10) 02/08/18 15:10 PT 12.9 SEC (12.0-15.0) 02/08/18 15:10 INR 0.95 (0.83-1.16) 02/08/18 15:10 Sodium 136 mEq/L (135-145) 02/08/18 15:10 Potassium 2.4 mEq/L (3.3-5.0) L* 02/08/18 15:10 Chloride 99 mEq/L (97-110) 02/08/18 15:10 Carbon Dioxide 23 mEq/l (22-31) 02/08/18 15:10 Anion Gap 14 mEq/L (8-16) 02/08/18 15:10 BUN 25 mg/dL (7-23) H 02/08/18 15:10 Creatinine 1.2 mg/dL (0.6-1.0) H 02/08/18 15:10 Estimated GFR 49 02/08/18 15:10 Glucose 101 mg/dL (70-100) H 02/08/18 15:10 Calcium 9.3 mg/dL (8.5-10.4) 02/08/18 15:10 Total Bilirubin 0.5 mg/dL (0.1-1.4) 02/08/18 15:10 Conjugated Bilirubin 0.1 mg/dL (0.0-0.5) 02/08/18 15:10 Unconjugated Bilirubin 0.4 mg/dL (0.0-1.1) 02/08/18 15:10 AST 25 IU/L (14-46) 02/08/18 15:10 ALT 33 IU/L (9-52) 02/08/18 15:10 Alkaline Phosphatase 100 IU/L (38-126) 02/08/18 15:10 Creatine Kinase 60 IU/L (0-156) 02/08/18 15:10 Troponin I < 0.012 ng/mL (0.000-0.034) 02/08/18 15:10 Total Protein 7.8 g/dL (6.3-8.2) 02/08/18 15:10 Albumin 4.7 g/dL (3.5-5.0) 02/08/18 15:10 Lipase 467 IU/L (23-300) H 02/08/18 15:10 Beta HCG, Qual NEGATIVE 02/08/18 15:10 Urine Color PALE YELLOW 02/08/18 15:37 Urine Appearance CLEAR 02/08/18 15:37 Urine pH 6.0 (5.0-7.5) 02/08/18 15:37 Ur Specific [place] 1.005 (1.002-1.030) 02/08/18 15:37 Urine Protein NEGATIVE (NEGATIVE) 02/08/18 15:37 Urine Ketones NEGATIVE (NEGATIVE) 02/08/18 15:37 Urine Blood NEGATIVE (NEGATIVE) 02/08/18 15:37 Urine Nitrate NEGATIVE (NEGATIVE) 02/08/18 15:37 Urine Bilirubin NEGATIVE (NEGATIVE) 02/08/18 15:37 Urine Urobilinogen NEGATIVE EU (0.2-1.0) 02/08/18 15:37 Ur Leukocyte Esterase NEGATIVE (NEGATIVE) 02/08/18 15:37 Urine RBC 1-3 /hpf (0-3) 02/08/18 15:37 Urine WBC 3-5 /hpf (0-3) H 02/08/18 15:37 Ur Epithelial Cells TRACE /lpf (NONE-1+) 02/08/18 15:37 Urine Mucus TRACE /lpf (NONE-1+) 02/08/18 15:37 Urine Glucose NEGATIVE (NEGATIVE) 02/08/18 15:37 Stool Occult Bld Scrn NEGATIVE (NEGATIVE) 02/08/18 15:02 Urine Opiates Screen NEGATIVE (NEGATIVE) 02/08/18 15:37 Acetaminophen < 10 mcg/mL (10-30) L 02/08/18 15:10 Urine Barbiturates NEGATIVE (NEGATIVE) 02/08/18 15:37 Ur Phencyclidine Scrn NEGATIVE (NEGATIVE) 02/08/18 15:37 Ur Amphetamine Screen NEGATIVE (NEGATIVE) 02/08/18 15:37 U Benzodiazepines Scrn NON-NEGATIVE (NEGATIVE) H 02/08/18 15:37 Urine Cocaine Screen NEGATIVE (NEGATIVE) 02/08/18 15:37 U Marijuana (THC) Screen NEGATIVE (NEGATIVE) 02/08/18 15:37 Ethyl Alcohol < 10 mg/dL (0-10) 02/08/18 15:10 Visualized and Interpreted EKG results: Yes EKG Interpretation: Positive for: normal sinsus rhythm Assessment & Plan Assessment: 47 yo F admitted with n/v/d and hypokalemia and yue in setting of benzodiazepine withdrawal # benzodiazepine withdrawal: was transitioned from xanax 2 q6 to librium 50 q 6 which should be roughly a 15% decrease however really was unable to tolerate that with persitent n/v/diarrhea and weakness, perhaps recurrent seizure. She does feel better after receiving ativan and will attempt to transition to ativan 2 q 6 for now which is roughly equal dosing to the xanax in longer acting form. If she tolerates this would begin a very slow taper given the length of time she has been dependent on xanax--consider a 10% decrease per week. Discussed with her at length that going "cold turkey" is not safe and if a doctor recommends this, she should find another doctor. Will dc propranolol given hypotension and add low dose gabapentin--can increase relatively quickly if effective without significant side effects. # yue: 2/2 above, will continue IVF overnight and recheck in am # severe hypokalemia: will replete with electrolyte protocol, 2/2 n/v/d in setting of benzo w/d # anxiety: patient interested in non-benzo options and is looking for a new psychiatrist, sxs currently somewhat severe but patient is managing them well, will add gabapentin as above, continue ativan scheduled for now # observation status # Patient new to my care, care plan reviewed with ER doctor as above. Old records reviewed and summarized as above.
[2018-02-08] MEDS ORDERED: chlordiazePOXIDE 25 MG CAP PO SCH (21:00)
[2018-02-08] MEDS: GABAPENTIN 100 MG CAP PO SCH (21:38)
[2018-02-08] MEDS: OXcarbazepine 300 MG TAB PO SCH (21:38)
[2018-02-08] MEDS ORDERED: PROPRANOLOL HCL 10 MG TAB PO SCH (22:00)
[2018-02-08] MEDS ORDERED: MAGNESIUM SULF 1 GM/DEXTROSE 100 ML IV ONE (22:25)
[2018-02-08] MEDS ORDERED: POTASSIUM CL 10 MEQ TAB PO ONE (22:27)
[2018-02-09] MEDS ORDERED: NS 1,000 ML IV ONE ×2 (00:19→00:45)
[2018-02-09] MEDS: NS 1,000 ML IV SCH ×2 (01:59→11:37)
[2018-02-09] MEDS: LORazepam 1 MG TAB PO SCH ×4 (01:59→19:57)
[2018-02-09 05:39] LABS: PLATELET COUNT 254 10^3/uL (150-400)
[2018-02-09] MEDS ORDERED: POTASSIUM CL 10 MEQ TAB PO ONE ×2 (06:33→19:58)
[2018-02-09] MEDS ORDERED: CALCIUM GLUCONATE 50 ML IV ONE (06:34)
[2018-02-09] MEDS ORDERED: MAGNESIUM SULF 1 GM/DEXTROSE 100 ML IV ONE (06:35)
[2018-02-09] MEDS ORDERED: CALCIUM GLUCONATE 1 GM in D5W 50 ML IV ONE (07:00)
[2018-02-09] MEDS: GABAPENTIN 100 MG CAP PO SCH ×3 (08:03→21:40)
[2018-02-09] MEDS ORDERED: NS W/ 20 KCl/L 1,000 ML IV SCH (11:45)
--- NOTE | 2018-02-09 11:45 | HOSPPROG ---
Hospitalist Progress Note Assessment/Plan: 47 yo F admitted with n/v/d and hypokalemia and yue in setting of benzodiazepine withdrawal # benzodiazepine withdrawal: -was transitioned from xanax 2 q6 to librium 50 q 6 which should be roughly a 15 % decrease however really was unable to tolerate that with persitent n/v/ diarrhea and weakness, perhaps recurrent seizure. -Cont ativan 2 q 6 for now which is roughly equal dosing to the xanax in longer acting form. If she tolerates this would begin a very slow taper given the length of time she has been dependent on xanax-- on this current regimen she is getting 8mg total of Ativan. Would consider decreasing by 1 mg weekly -cont additional Benzo's PRN. She has not needed any thus far # yue: 2/2 above, resolved. Still looks dehydrated, will cont IVF but provide KCl with it as well # severe hypokalemia: will replete with electrolyte protocol, 2/2 n/v/d in setting of benzo w/d -will provide Mg now for goal of 2.0 # anxiety: patient interested in non-benzo options and is looking for a new psychiatrist, sxs currently somewhat severe but patient is managing them well, will add gabapentin as above, continue ativan scheduled for now -Gabapentin increased to 300mg TID Change to inpatient status Pt is new to my care Subjective: tolerating Ativan. Still with some anxiety but has not needed PRN. Objective: Vital Signs Temp Pulse Resp BP Pulse Ox 36.4 C 77 16 92/52 L 98 02/09/18 07:17 02/09/18 07:17 02/09/18 07:17 02/09/18 07:17 02/09/18 07:17 Laboratory Results 02/09/18 05:13 02/09/18 05:13 02/08/18 02/09/18 02/10/18 05:59 05:59 05:59 Intake Total 6884 Output Total 3600 Balance 3284 PT 12.9 SEC (12.0-15.0) 02/08/18 15:10 INR 0.95 (0.83-1.16) 02/08/18 15:10 - Physical Exam Constitutional: no apparent distress Eyes: PERRL Ears, Nose, Mouth, Throat: moist mucous membranes Cardiovascular: regular rate and rhythym, No edema Respiratory: no respiratory distress, no rales or rhonchi, clear to auscultation Gastrointestinal: normoactive bowel sounds, soft, non-tender abdomen Skin: warm Neurologic: AAOx3 Psychiatric: interacting appropriately, not anxious, not encephalopathic Lymph, Heme, Immunologic: No petechiae ICD10 Worksheet Patient Problems: Problems Problem Status Onset Acute kidney injury Acute Alcohol abuse Acute
[2018-02-09] MEDS ORDERED: MAGNESIUM SULF 2 GM/WATER 50 ML IV ONE (11:46)
--- NOTE | 2018-02-09 14:29 | PDMN ---
Medical Necessity Medical necessity: Change to inpt as of 02/09/18 @ 11:41. Pt meets inpt criteria per MD order and MCG M-326, Renal Failure, Acute. 47 y/o admitted w/nausea, vomiting, diarrhea, dehydration, severe hypokalemia, and acute kidney injury in setting of benzodiazepine withdrawl, persistent hypotension (last BP 84/58). Most recent K level 2.9, electrolyte protocol, IVF, anticipate>2MN for ongoing med nec monitoring/treatment.
[2018-02-09] MEDS: OXcarbazepine 300 MG TAB PO SCH (22:43)
[2018-02-09] MEDS: LORazepam 0.5 MG TAB PO PRN (22:45)
[2018-02-10] MEDS: LORazepam 1 MG TAB PO SCH ×2 (02:18→08:41)
[2018-02-10] MEDS ORDERED: POTASSIUM CL 10 MEQ TAB PO ONE (07:29)
[2018-02-10] MEDS ORDERED: CALCIUM GLUCONATE 50 ML IV ONE (07:30)
[2018-02-10] MEDS ORDERED: CALCIUM GLUCONATE 1 GM in D5W 50 ML IV ONE (08:15)
[2018-02-10] MEDS: GABAPENTIN 100 MG CAP PO SCH (08:40)
[2018-02-10] MEDS ORDERED: POTASSIUM CL 20 MEQ/15 ML UDCUP PO SCH (09:30)
[2018-02-10] MEDS: LORazepam 0.5 MG TAB PO PRN (10:54)
[2018-02-10 11:57] VITALS: BP 95/58
--- NOTE | 2018-02-10 12:18 | PDDCSUM ---
Discharge Summary Discharge Summary: 47 yo F admitted with n/v/d and hypokalemia and yue in setting of benzodiazepine withdrawal. Please see below for details per problem list. She will have f/u with her PCP on Monday. She has been provided Ativan for her initial week of WD protocol. Additional scripts or adjustments will be per her PCP. DDX # benzodiazepine withdrawal: -was transitioned from xanax 2 q6 to librium 50 q 6 which should be roughly a 15 % decrease however really was unable to tolerate that with persitent n/v/ diarrhea and weakness, perhaps recurrent seizure. -We have started Ativan 2mg q 6hr for now which is roughly equal dosing to the xanax in longer acting form. If she tolerates this would begin a very slow taper given the length of time she has been dependent on xanax-- on this current regimen she is getting 8mg total of Ativan. Would consider decreasing by 1 mg weekly. she has been given a total of #56, 1 mg pills -She has needed some break through Ativan and she will cont 0.5mg - 1mg q 4 hrs as needed. She has been given a total of #20 0.5mg pills -further mgmt per her PCP which she will see on Monday # yue: 2/2 above, resolved. # severe hypokalemia: on daily potassium # anxiety: -patient interested in non-benzo options and is looking for a new psychiatrist -Gabapentin 300mg TID. Could increase to 600mg TID on Monday if anxiety is an issue Exam: NAD AAOX3 RRR CTA B S/NT/ND NOT CURRENTLY ANXIOUS MEDS: SEE MED REC F/U: PER ABOVE TOTAL TIME SPENT ON D/C IS 35 MINS
--- NOTE | 2018-02-10 13:25 | ASDISCHSUM ---
Discharge Information Plan Status:Home with No Needs Medically Cleared to Leave:02/10/2018 Discharge Date:02/10/2018 CM D/C Disposition:Home, Routine, Self-Care ADT D/C Disposition:Home, Routine, Self-Care Projected Discharge Date:02/10/2018 Transportation at D/C:Family Discharge Delay Reason: Follow-Up Date:02/10/2018 Discharge Slot: Final Diagnosis: Placement Information Patient Contact Information Contact Name:LYNN Relationship:Connor Address:[address] Phone: City:[place] Alternate Phone: State/Zip Code:[place] [address] Email: Financial Information Financial Class:BCOP Primary Plan Desc:BC OF ID Primary Plan Number:[id number] Secondary Plan Desc: Secondary Plan Number: Assessment Information Case Management Discharge Plan Note Case Management Discharge Discharge Order Complete? Answers: Yes Patient to Obtain Answers: via Family Medications Transportation Arranged Answers: Family/Friends Family Notified Answers: Yes Notes: pt phoned Discharge Comments Notes: Spoke with pt in the room. Pt to discharge home independently with and is comfortable with this plan. Pt has plan to meet with GP weekly to manage panic disorder until new psychiatrist is able to see her. No further CM needs noted at this time. CM available should needs arise. D/C Plan: Home independently Date Signed: 02/10/2018 01:23 PM Electronically Signed By:Elaine Blanchard Intervention Information
--- NOTE | 2018-02-10 15:32 | ASMTLACE ---
LAN Length of stay for Answers: 1 day current admission Acuity / Level of Answers: Yes Care: Did the patient have an inpatient admission? Comorbidities - select Answers: Opioid dependence all that apply / Chronic pain Other Notes: Bipolar II, Panic Disorder # of Emergency department Answers: 3-4 visits in the last 6 months Social determinants Answers: Mental health diagnosis (anxiety, depression, pers onality disorders, etc.) Score: 15 Date Signed: 02/10/2018 03:31 PM Electronically Signed By:Elaine Blanchard
--- NOTE | 2018-02-10 15:40 | ASMTCMCOM ---
CM Note CM Note Notes: Pt's chart from both this admission and last admission reviewed for d/c planning. CM also met with Pt. Pt is a 47 y/o female with a hx of bipolar 2 and anxiety who is experiencing withdrawl from prescribed benzos. Pt wants to manage her anxiety without benzos and was last here 01/31 when she was treated for benzo withdrawal. At that time she was seen by Frances Valderrama, and a plan for Pt to seek a new psychiatrist and therapy to address anxiety was agreed to. Her withdrawal became unmanageable at home and she returned to the hospital for additional support. The CM spent time with her discussing her anxiety and the possibility that it is related to past traumas that she hexperienced in childood. It was strongly recommended that she seek a therapist who has EMDR and possibly CBT training. A name of a therapist was given to her, Manuela Davis LPC, along with a contact number. She was also encouraged to contact her insurance with a request for covered therapists. Once her medical symptoms become manageable she will begin to consider her resources for psychiatry and therapy. No other CM needs have been identified. CM to follow if needs change. D/C Plan: Independent Date Signed: 02/10/2018 03:39 PM Electronically Signed By:Gabi Cuevas
--- NOTE | 2018-02-13 23:16 | CPEKG ---
Test Reason : OPEN Blood Pressure : / mmHG Vent. Rate : 070 BPM Atrial Rate : 070 BPM P-R Int : 210 ms QRS Dur : 107 ms QT Int : 399 ms P-R-T Axes : 105 075 080 degrees QTc Int : 431 ms Sinus rhythm Prolonged MO interval Confirmed by Araceli Hoffmann ([id number]) on 02/13/2018 11:15:52 PM Referred By: Confirmed By:Araceli Hoffmann
== END 2018-02-10 13:15 | disposition home or self-care (01) | DRG 683 ==
LOC: F3E 18:26 → OBSVTOIN 02-09 11:41
PROVIDERS: ADMIT Internal Medicine; ATTEND Internal Medicine
DX: N17.9 Acute kidney failure, unspecified (principal); F13.239 Sedative, hypnotic or anxiolytic dependence with withdrawal, unspecified; E87.6 Hypokalemia; F41.8 Other specified anxiety disorders; E86.0 Dehydration
CPT/HCPCS: 80305; 96365; G0378; G0480; J0610; J2060; J2405; J3475; J3480

== ENCOUNTER 2018-02-20 15:57 | Emergency (ER) | payer BC ==
[2018-02-20] MEDS ORDERED: NS 1,000 ML IV ONE (16:04)
--- NOTE | 2018-02-20 16:08 | EDPHY ---
H & P Time Seen by Provider: 02/20/18 16:06 HPI/ROS: HPI CHIEF COMPLAINT: Anxiety, panic attack, possible benzodiazepine withdrawal HISTORY OF PRESENT ILLNESS: 47-year-old female, has history panic attacks and generalized anxiety disorder, was recently hospitalized in early January for anxiety, additionally benzodiazepine withdrawal, nausea vomiting and diarrhea and acute kidney injury. She presents emergency room by ambulance from her primary care doctor's office he has been adjusting her Ativan. She takes 2 mg Ativan 4 times a day. She sees her PCP regularly or weekly for benzodiazepine refill. She presents emergency room stating she feels very anxious, panic attack, and is requesting Ativan here. She denies any chest pain or shortness of breath. She does feel tremulous. Past Medical History: Generalized anxiety disorder, panic attack, recent hospitalization for benzodiazepine withdrawal Past Surgical History: Recent surgery Social History: Daily benzo dependency. Family History: Noncontributory ROS REVIEW OF SYSTEMS: 10 Systems were reviewed and negative with the exception of the elements mentioned in the history of present illness. Exam Constitutional anxious, triage nursing summary reviewed, vital signs reviewed, awake/alert. Eyes normal conjunctivae and sclera, EOMI, PERRLA. HENT normal inspection, atraumatic, moist mucus membranes, no epistaxis, neck supple/ no meningismus, no raccoon eyes. Respiratory clear to auscultation bilaterally, normal breath sounds, no respiratory distress, no wheezing. Cardiovascular rate normal, regular rhythm, no murmur, no edema, distal pulses normal. Gastrointestinal soft, non-tender, no rebound, no guarding, normal bowel sounds, no distension, no pulsatile mass. Genitourinary no CVA tenderness. Musculoskeletal no midline vertebral tenderness, full range of motion, no calf swelling, no tenderness of extremities, no meningismus, good pulses, neurovascularly intact. Skin pink, warm, & dry, no rash, skin atraumatic. Neurologic normal neurological exam no focal neuro deficit, steady gait, no instability, awake, alert and oriented x 3, AAOx3, moves all 4 extremities equally, motor intact, sensory intact, CN II-XII intact, normal cerebellar, normal vision, normal speech. Psychiatric anxious. Heme/Lymph/Immune no lymphadenopathy. Differential Diagnosis: Includes but is not limited to in a particular order acute anxiety, panic attack, electrolyte disturbance, dehydration, acute kidney injury Medical Decision Making: Plan for this patient IV establishment IV fluid bolus , cardiac monitoring, check basic electrolytes. Re-evaluation: CT scan head without contrast called to me by Dr. Olivo. Negative for bleed. Patient is repeatedly asking for benzodiazepines. At this time I have declined to give her any has had concerned that she may be taking too many. She did ambulate well to the bathroom without any difficulty with steady gait. After explained that I would not be giving her benzos here in emergency room she became upset, and requested to leave. The patient's electrolytes are appropriate. CT scan of her head is unremarkable for acute bleed. Is noted the patient's LFTs are slightly elevated. I do recommend she follows up with primary care doctor about this. I did recommend she stay further in the emergency room for further evaluation including urine drug screen, IV hydration, and re-evaluation however she is declining and signing out against medical advice. I do recommend that she be very careful about how much benzodiazepine she takes. At this time she denies suicidal or homicidal ideation. Denies feeling depressed. Does state she feels anxious. And would like more benzodiazepines here in the emergency room. Patient understands the risk of leaving against medical advice without further observation and evaluation in the emergency room. She understands risk of morbidity, mortality. 1950: After long discussion the patient did end up staying in the emergency room and was re-evaluated at 4 hours No evidence of significant withdrawal. She has a steady stable gait. Her boyfriend at bedside she is requesting discharge home. She understands she will not get any further benzodiazepines. I do recommend that she follows up closely with primary care doctor and helps come off for benzodiazepine slowly. At this time no evidence withdrawal. 1950: patient requesting discharge. Electrolytes are appropriate. Vital signs stable. Source: Patient, EMS - Medical/Surgical History Hx Asthma: No Hx Chronic Respiratory Disease: No Hx Diabetes: No Hx Cardiac Disease: No Hx Renal Disease: No Hx Cirrhosis: No Hx Alcoholism: No Hx HIV/AIDS: No Hx Splenectomy or Spleen Trauma: No Other PMH: lithotripsy,cholecystectomy, breast augmentation, tummy tuck, - Social History Smoking Status: Never smoked Constitutional: Initial Vital Signs Temperature (C) 36.4 C 02/20/18 16:00 Heart Rate 90 02/20/18 16:00 Respiratory Rate 20 02/20/18 16:00 Blood Pressure 114/72 02/20/18 16:00 O2 Sat (%) 92 02/20/18 16:00 O2 Delivery Mode Room Air Allergies/Adverse Reactions: codeine Allergy (Verified 02/10/18 10:59) Rash Sulfa (Sulfonamide Antibiotics) Allergy (Verified 02/10/18 10:59) tramadol Allergy (Verified 02/10/18 10:59) Rash Home Medications: Medication Instructions Recorded Acetaminophen [Tylenol 325mg (*)] 325 - 650 mg PO Q6 PRN 01/31/18 Ibuprofen [Motrin (*)] 400 mg PO DAILY PRN 01/31/18 OXcarbazepine [Trileptal 300mg (*)] 1,200 mg PO HS #120 tab 02/02/18 LORazepam [Ativan (*)] 0.5 - 1 mg PO Q8HRS PRN #20 tab 02/10/18 LORazepam [Ativan (*)] 2 mg PO Q6H #56 tab 02/10/18 Potassium Chloride Po [Potassium 20 meq PO DAILY #30 udcup 02/10/18 Chloride 20 mg/15 ml (*)] Medical Decision Making - Diagnostics Imaging Results: Imaging Impressions Head CT 02/20/18 16:09 Impression: 1. Normal CT brain without contrast. 2. Consider MRI of the brain, if there is continued clinical concern. Findings and recommendations discussed with Emergency Department physician, Yo Samaniego MD at 17:04 hour, 02/20/2018. Final report concurs with initial preliminary interpretation. - Data Points Laboratory Results: Laboratory Results 02/20/18 16:00 02/20/18 16:00 02/20/18 02/20/18 02/20/18 17:40 16:00 16:00 WBC RBC Hgb Hct MCV MCH MCHC RDW Plt Count MPV Neut % (Auto) Lymph % (Auto) [place] % (Auto) Eos % (Auto) Baso % (Auto) Nucleat RBC Rel Count Absolute Neuts (auto) Absolute Lymphs (auto) Absolute Monos (auto) Absolute Eos (auto) Absolute Basos (auto) Absolute Nucleated RBC Immature Gran % Immature Gran # Sodium Potassium Chloride Carbon Dioxide Anion Gap BUN Creatinine Estimated GFR Glucose Calcium Magnesium Total Bilirubin Conjugated Bilirubin Unconjugated Bilirubin AST ALT Alkaline Phosphatase Creatine Kinase Total Protein Albumin Beta HCG, Qual NEGATIVE Urine Color PALE YELLOW Urine Appearance CLEAR Urine pH 6.0 (5.0-7.5) Ur Specific [place] 1.009 (1.002-1.030) Urine Protein NEGATIVE (NEGATIVE) Urine Ketones NEGATIVE (NEGATIVE) Urine Blood NEGATIVE (NEGATIVE) Urine Nitrate NEGATIVE (NEGATIVE) Urine Bilirubin NEGATIVE (NEGATIVE) Urine Urobilinogen NEGATIVE EU EU (0.2-1.0) Ur Leukocyte Esterase NEGATIVE (NEGATIVE) Urine Glucose NEGATIVE (NEGATIVE) Urine Opiates Screen NEGATIVE (NEGATIVE) Urine Barbiturates NEGATIVE (NEGATIVE) Ur Phencyclidine Scrn NEGATIVE (NEGATIVE) Ur Amphetamine Screen NEGATIVE (NEGATIVE) U Benzodiazepines Scrn NON-NEGATIVE H (NEGATIVE) Urine Cocaine Screen NEGATIVE (NEGATIVE) U Marijuana (THC) Screen NEGATIVE (NEGATIVE) Ethyl Alcohol < 10 mg/dL mg/dL (0-10) 02/20/18 02/20/18 16:00 16:00 WBC 5.28 10^3/uL 10^3/uL (3.80-9.50) RBC 4.76 10^6/uL 10^6/uL (4.18-5.33) Hgb 14.9 g/dL g/dL (12.6-16.3) Hct 43.3 % % (38.0-47.0) MCV 91.0 fL fL (81.5-99.8) MCH 31.3 pg pg (27.9-34.1) MCHC 34.4 g/dL g/dL (32.4-36.7) RDW 12.6 % % (11.5-15.2) Plt Count 310 10^3/uL 10^3/uL (150-400) MPV 9.8 fL fL (8.7-11.7) Neut % (Auto) 58.9 % % (39.3-74.2) Lymph % (Auto) 30.9 % % (15.0-45.0) [place] % (Auto) 8.5 % % (4.5-13.0) Eos % (Auto) 0.6 % % (0.6-7.6) Baso % (Auto) 0.9 % % (0.3-1.7) Nucleat RBC Rel Count 0.0 % % (0.0-0.2) Absolute Neuts (auto) 3.11 10^3/uL 10^3/uL (1.70-6.50) Absolute Lymphs (auto) 1.63 10^3/uL 10^3/uL (1.00-3.00) Absolute Monos (auto) 0.45 10^3/uL 10^3/uL (0.30-0.80) Absolute Eos (auto) 0.03 10^3/uL 10^3/uL (0.03-0.40) Absolute Basos (auto) 0.05 10^3/uL 10^3/uL (0.02-0.10) Absolute Nucleated RBC 0.00 10^3/uL 10^3/uL (0-0.01) Immature Gran % 0.2 % % (0.0-1.1) Immature Gran # 0.01 10^3/uL 10^3/uL (0.00-0.10) Sodium 141 mEq/L mEq/L (135-145) Potassium 3.5 mEq/L mEq/L (3.3-5.0) Chloride 100 mEq/L mEq/L (97-110) Carbon Dioxide 27 mEq/l mEq/l (22-31) Anion Gap 14 mEq/L mEq/L (8-16) BUN 43 mg/dL H mg/dL (7-23) Creatinine 1.2 mg/dL H mg/dL (0.6-1.0) Estimated GFR 49 Glucose 90 mg/dL mg/dL (70-100) Calcium 10.0 mg/dL mg/dL (8.5-10.4) Magnesium 2.0 mg/dL mg/dL (1.6-2.3) Total Bilirubin 0.4 mg/dL mg/dL (0.1-1.4) Conjugated Bilirubin 0.1 mg/dL mg/dL (0.0-0.5) Unconjugated Bilirubin 0.3 mg/dL mg/dL (0.0-1.1) AST 68 IU/L H IU/L (14-46) ALT 72 IU/L H IU/L (9-52) Alkaline Phosphatase 128 IU/L H IU/L (38-126) Creatine Kinase 79 IU/L IU/L (0-156) Total Protein 8.6 g/dL H g/dL (6.3-8.2) Albumin 5.0 g/dL g/dL (3.5-5.0) Beta HCG, Qual Urine Color Urine Appearance Urine pH Ur Specific [place] Urine Protein Urine Ketones Urine Blood Urine Nitrate Urine Bilirubin Urine Urobilinogen Ur Leukocyte Esterase Urine Glucose Urine Opiates Screen Urine Barbiturates Ur Phencyclidine Scrn Ur Amphetamine Screen U Benzodiazepines Scrn Urine Cocaine Screen U Marijuana (THC) Screen Ethyl Alcohol Medications Given: Discontinued Medications Sodium Chloride (Ns) 1,000 mls @ 0 mls/hr IV EDNOW ONE; Wide Open PRN Reason: Protocol Stop: 02/20/18 16:05 Last Admin: 02/20/18 16:13 Dose: 1,000 mls Departure - Departure Disposition: Against Medical Advice Clinical Impression: Benzodiazepine dependence Condition: Good Instructions: Anxiety (ED) Additional Instructions: 1. Return emergency room if you have any worsening symptoms 2. Please follow up closely with her primary care doctor Referrals: Patient,NotPresent [Unknown] - As per Instructions
[2018-02-20 16:10] LABS: PLATELET COUNT 310 10^3/uL (150-400)
[2018-02-20 16:25] LABS: CREATINE KINASE 79 IU/L (0-156)
[2018-02-20 19:57] VITALS: BP 122/68
== END 2018-02-20 19:57 | disposition home or self-care (01) ==
LOC: EDUNIT#
DX: F13.20 Sedative, hypnotic or anxiolytic dependence, uncomplicated (principal); E86.9 Volume depletion, unspecified; R94.5 Abnormal results of liver function studies; F41.1 Generalized anxiety disorder
CPT/HCPCS: 80305; G0480

== ENCOUNTER 2018-02-26 09:28 | Inpatient (IN) | payer BC ==
[2018-02-26] MEDS ORDERED: NS 1,000 ML IV ONE (10:08)
[2018-02-26] MEDS ORDERED: LORazepam 2 MG/ML INJ IVP ONE ×2 (10:09→11:12)
[2018-02-26] MEDS ORDERED: ONDANSETRON 4 MG/2 ML VIAL ONE (10:22)
--- NOTE | 2018-02-26 10:23 | EDPHY ---
General Time Seen by Provider: 02/26/18 10:09 Narrative: CHIEF COMPLAINT: "Benzo withdrawal" HISTORY OF PRESENT ILLNESS: Patient presents by private vehicle with her spouse with complaints of benzodiazepine withdrawal and "my motor skills arent working."Patient reports that she has been on high dose of Ativan and previous benzodiazepines for many years due to panic disorder and bipolar disorder. She says that she was recently on 4 mg of Ativan every 6 hr until yesterday. Her primary care physician yesterday dropped her to 2 mg of Ativan every 6 hr. She says that over the past 12 hr she has felt very shaky, and "it is hard for me to control at arms and legs. It is hard for me to walk. My motor skills are not working. " at bedside denies any description of seizure like activity. She has no chest pain or shortness of breath. She has felt very nauseated but not actively vomiting. She has had several episodes of this in the past, each of which she was admitted to this hospital for. She has had monitored tapers in the past. She has no other associated complaints or modifying factors REVIEW OF SYSTEMS: 10 systems were reviewed and negative with the exception of the elements mentioned in the history of present illness. PCP: [facility], Dr. Andrade SPECIALISTS: None currently PAST MEDICAL HISTORY: Panic disorder, bipolar II, anxiety PAST SURGICAL HISTORY: No recent surgeries. Remote lithotripsy, cholecystectomy, breast augmentation and abdominal liposuction SOCIAL HISTORY: Nonsmoker. Lives independently with her spouse. FAMILY HISTORY: Noncontributory EXAMINATION: General Appearance: Alert, no distress, tremulous Head: normocephalic, atraumatic Eyes: Pupils equal and round, no conjunctival pallor or injection ENT, Mouth: Mucous membranes moist Neck: Normal inspection, supple, non-tender Respiratory: Lungs are clear to auscultation Cardiovascular: Regular rate and rhythm. No murmur. Gastrointestinal: Abdomen is soft and nontender Back: non-tender, no bony abnormalities Neurological: GCS 15. A&O, nonfocal, strength is symmetric but 4/5 in all 4 extremities. Light sensory symmetric. Mild difficulty with [id number]. No pronator drift. Skin: Warm and dry, no rash Extremities: Nontender, no pedal edema Psychiatric: Mood and affect normal DIFFERENTIAL DIAGNOSES: Including but not limited to benzodiazepine withdrawal, benzo dependency, dehydration, acute kidney injury, electrolyte disturbance, CVA MDM: 10:10 a.m. Possible early benzo withdrawal with no signs of seizure activity. She is tremulous with no focal deficits on her neuro examination. She is awake and alert. She is mildly tachycardic. She will be placed on a telemetry monitor. Laboratory studies be obtained. I have ordered Ativan IV, IV fluid and will recheck shortly. 10:45 a.m. Patient re-evaluated. IV has been placed in Ativan will be administered. 11:10 a.m. Patient re-evaluated. Patient was unable to ambulate to the restroom on her own and required nursing assistance with wheelchair. Her laboratory studies are within normal limits. At this time she feels no improvement from the 1 mg Ativan. I have ordered a 2nd mg of Ativan. I will discuss with Dr. Rodriguez and re-evaluate. 11:25 a.m. Case discussed with hospitalist Kriss Sampson, FAVIO. She will admit the patient to Dr. Wall. She requests a medical-surgical bed. She is admitted inpatient status, in stable condition. Patient and spouse are agreeable to this plan SUPERVISION: Patient was independently examined, but I discussed the case with my secondary supervising physician Dr. Rodriguez CONSULTATION: None - History Smoking Status: Never smoked - Objective Vital Signs: Initial Vital Signs Temperature (C) 98.4 F 02/26/18 09:32 Heart Rate 108 H 02/26/18 09:32 Respiratory Rate 18 02/26/18 09:32 Blood Pressure 96/68 L 02/26/18 09:32 O2 Sat (%) 96 02/26/18 09:32 O2 Delivery Mode Room Air Allergies/Adverse Reactions: codeine Allergy (Verified 02/26/18 09:35) Rash Sulfa (Sulfonamide Antibiotics) Allergy (Verified 02/26/18 09:35) tramadol Allergy (Verified 02/26/18 09:35) Rash Home Medications: Medication Instructions Recorded Acetaminophen [Tylenol 325mg (*)] 325 - 650 mg PO Q6 PRN 01/31/18 Ibuprofen [Motrin (*)] 400 mg PO DAILY PRN 01/31/18 OXcarbazepine [Trileptal 300mg (*)] 1,200 mg PO HS #120 tab 02/02/18 LORazepam [Ativan (*)] 0.5 - 1 mg PO Q8HRS PRN #20 tab 02/10/18 LORazepam [Ativan (*)] 2 mg PO Q6H #56 tab 02/10/18 Potassium Chloride Po [Potassium 20 meq PO DAILY #30 udcup 02/10/18 Chloride 20 mg/15 ml (*)] Trileptal 02/26/18 Departure - Departure Disposition: [facility] Inpatient Acute Clinical Impression: Benzodiazepine withdrawal Qualifiers: Complication of substance-induced condition: with unspecified complication Qualified Code(s): F13.239 - Sedative, hypnotic or anxiolytic dependence with withdrawal, unspecified Condition: Good Referrals: Shana Andrade MD [Primary Care Provider] - As per Instructions
[2018-02-26] MEDS ORDERED: ONDANSETRON 4 MG/2 ML VIAL IVP ONE (10:25)
[2018-02-26 10:31] LABS: PLATELET COUNT 315 10^3/uL (150-400)
[2018-02-26] MEDS ORDERED: ACETAMINOPHEN 325 MG TAB PO PRN (13:07)
[2018-02-26] MEDS ORDERED: ONDANSETRON DISINTEGRATING 4 MG TAB PO PRN (13:07)
[2018-02-26] MEDS ORDERED: ONDANSETRON 4 MG/2 ML VIAL IVP PRN (13:07)
--- NOTE | 2018-02-26 13:34 | PDGENHP ---
History and Physical - Chief Complaint benzo withdrawal - History of Present Illness 47yo F with bipolar d/o, severe anxiety with benzodiazepine dependence presents with motor difficulty, nausea/vomiting consistent with prior episodes of benzo withdrawal. She is unsure if she had a seizure but doesn't think so. She has been hospitalized twice recently at this hospital for the same. She was discharged on 02/10 with script for 1 week of ativan 2mg q6h with plan for outpatient ativan taper. She saw her PCP, Dr Andrade, the following week who, per patient report, had accidentally prescribed ativan 4mg q6h which the patient took for [address] Andrade then prescribed ativan 1mg q6h which she started yesterday but immediately began to have typical withdrawal symptoms. She drank several glasses of wine last night to quell her anxiety. She was having difficulty with coordination and walking this AM so came to ED where she was noted to be in early benzo withdrawal for which she is being admitted. History Information - Allergies/Home Medication List Allergies/Adverse Reactions: codeine Allergy (Verified 02/26/18 09:35) Rash Sulfa (Sulfonamide Antibiotics) Allergy (Verified 02/26/18 11:40) Rash tramadol Allergy (Verified 02/26/18 09:35) Rash I have personally reviewed and updated: family history, medical history, social history, surgical history - Past Medical History psychiatric history Additional medical history: bipolar disorder, anxiety, panic disorder, benzodiazepine dependence - Surgical History Additional surgical history: cholecystectomy - Family History Positive for: non-pertinent - Social History Smoking Status: Never smoked Alcohol Use: Occasionally Drug Use: None Additional social history: , 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 Review of Systems Review of Systems: ROS: 10pt was reviewed & negative except for what was stated in HPI & below Physical Exam Physical Exam: Temp Pulse Resp BP Pulse Ox 37.1 C 85 18 107/66 94 02/26/18 12:28 02/26/18 12:28 02/26/18 12:28 02/26/18 12:28 02/26/18 12:28 Constitutional: no apparent distress, appears nourished, not in pain Eyes: PERRL, anicteric sclera, EOMI, other (no nystagmus) Ears, Nose, Mouth, Throat: moist mucous membranes, hearing normal, ears appear normal, no oral mucosal ulcers Cardiovascular: regular rate and rhythym, no murmur, rub, or gallop, No edema Respiratory: no respiratory distress, no rales or rhonchi, clear to auscultation Gastrointestinal: normoactive bowel sounds, soft, non-tender abdomen, no palpable masses Genitourinary: no bladder fullness, no bladder tenderness Skin: warm, normal color, no rashes or abrasions, no fluctuance, no induration, No mottled Musculoskeletal: full muscle strength, no muscle tenderness, normal joint ROM, no joint effusions Neurologic: AAOx3, sensation intact bilaterally, CN II-XII Intact, No weakness, No numbness Psychiatric: other (tearful throughout encounter) Lab Data & Imaging Review 02/26/18 10:19 02/26/18 10:19 WBC 9.09 10^3/uL (3.80-9.50) 02/26/18 10:19 RBC 4.52 10^6/uL (4.18-5.33) 02/26/18 10:19 Hgb 14.3 g/dL (12.6-16.3) 02/26/18 10:19 Hct 39.9 % (38.0-47.0) 02/26/18 10:19 MCV 88.3 fL (81.5-99.8) 02/26/18 10:19 MCH 31.6 pg (27.9-34.1) 02/26/18 10:19 MCHC 35.8 g/dL (32.4-36.7) 02/26/18 10:19 RDW 12.2 % (11.5-15.2) 02/26/18 10:19 Plt Count 315 10^3/uL (150-400) 02/26/18 10:19 MPV 9.8 fL (8.7-11.7) 02/26/18 10:19 Neut % (Auto) 77.3 % (39.3-74.2) H 02/26/18 10:19 Lymph % (Auto) 14.5 % (15.0-45.0) L 02/26/18 10:19 [place] % (Auto) 6.8 % (4.5-13.0) 02/26/18 10:19 Eos % (Auto) 0.4 % (0.6-7.6) L 02/26/18 10:19 Baso % (Auto) 0.6 % (0.3-1.7) 02/26/18 10:19 Nucleat RBC Rel Count 0.0 % (0.0-0.2) 02/26/18 10:19 Absolute Neuts (auto) 7.02 10^3/uL (1.70-6.50) H 02/26/18 10:19 Absolute Lymphs (auto) 1.32 10^3/uL (1.00-3.00) 02/26/18 10:19 Absolute Monos (auto) 0.62 10^3/uL (0.30-0.80) 02/26/18 10:19 Absolute Eos (auto) 0.04 10^3/uL (0.03-0.40) 02/26/18 10:19 Absolute Basos (auto) 0.05 10^3/uL (0.02-0.10) 02/26/18 10:19 Absolute Nucleated RBC 0.00 10^3/uL (0-0.01) 02/26/18 10:19 Immature Gran % 0.4 % (0.0-1.1) 02/26/18 10:19 Immature Gran # 0.04 10^3/uL (0.00-0.10) 02/26/18 10:19 Sodium 141 mEq/L (135-145) 02/26/18 10:19 Potassium 3.4 mEq/L (3.3-5.0) 02/26/18 10:19 Chloride 102 mEq/L (97-110) 02/26/18 10:19 Carbon Dioxide 28 mEq/l (22-31) 02/26/18 10:19 Anion Gap 11 mEq/L (8-16) 02/26/18 10:19 BUN 29 mg/dL (7-23) H 02/26/18 10:19 Creatinine 1.0 mg/dL (0.6-1.0) 02/26/18 10:19 Estimated GFR 60 02/26/18 10:19 Glucose 90 mg/dL (70-100) 02/26/18 10:19 Calcium 8.6 mg/dL (8.5-10.4) 02/26/18 10:19 Magnesium 1.9 mg/dL (1.6-2.3) 02/26/18 10:19 Beta HCG, Qual NEGATIVE 02/26/18 10:19 Assessment & Plan Assessment: 47yo F with bipolar d/o, severe anxiety with benzodiazepine dependence presents with motor incoordination, nausea/vomiting consistent with prior episodes of benzo withdrawal after being tapered down in outpatient setting. Plan: #Benzodiazepine withdrawal: Acute. Patient reports PCP had prescribed incorrect dose of ativan which caused her to go into withdrawal. This is suspicious activity and concerning for aberrant behavior on the patient's part. She tried librium during past hospitalization but didn't tolerate 2/2 hypotension. I will put her back on ativan at prior dose. She will require a prolonged taper. - Schedule ativan 2mg PO q6h (this was previous dose when discharged from hospital 02/10) - Will also make available ativan 0.5mg PO q8h PRN - Continue gabapentin 300mg TID - Pharmacy to check PDMP - Will discuss with psychiatry; she currently does not have outpatient psychiatrist - Seizure precautions #Bipolar d/o - Continue home trileptal #Hypokalemia - Replete Diet: regular VTE ppx: SCDs Code: full Dispo: Admit under inpatient status as reasonable medical necessity will require stay >2 midnights.
[2018-02-26] MEDS: LORazepam 1 MG TAB PO SCH ×2 (14:04→20:03)
--- NOTE | 2018-02-26 15:07 | PDMN ---
Medical Necessity [place] [facility] [id number]; 2 days: pt with bipolar disorder, severe anxiety with benzodiazepine dependence presents with N/ V, difficulty walking /coordination, pt requiring prolonged tapering, Sz precautions, anticipate > 2 MN
--- NOTE | 2018-02-26 15:25 | ASMTCMCOM ---
CM Note CM Note Notes: Chart reviewed. Patient with known anxiety disorder, bipolar disorder on benzodiazepines with active withdrawal symptoms admitted via ED. Lives with her . Unclear whether she has psychiatric support for anxiety. No physical needs for HHC noted at this time. CM to follow. Plan: TBD Date Signed: 02/26/2018 03:25 PM Electronically Signed By:Guerita Diop RN
[2018-02-26] MEDS: GABAPENTIN 300 MG CAP PO SCH ×2 (16:18→20:03)
[2018-02-26] MEDS: LORazepam 0.5 MG TAB PO PRN (17:19)
[2018-02-26] MEDS ORDERED: OXcarbazepine 300 MG TAB PO SCH (21:00)
[2018-02-27] MEDS: LORazepam 1 MG TAB PO SCH ×4 (01:02→19:47)
[2018-02-27] MEDS: LORazepam 0.5 MG TAB PO PRN ×2 (03:59→21:47)
[2018-02-27] MEDS: GABAPENTIN 300 MG CAP PO SCH (08:45)
[2018-02-27] MEDS: POTASSIUM CL 20 MEQ/15 ML UDCUP PO SCH (08:45)
[2018-02-27] MEDS ORDERED: POTASSIUM CL 20 MEQ/15 ML UDCUP PO ONE (08:49)
[2018-02-27] MEDS ORDERED: PROTOCOL POTASSIUM 1 DOSE MISC PRN (08:49)
--- NOTE | 2018-02-27 14:39 | HOSPPROG ---
Hospitalist Progress Note Assessment/Plan: 47yo F with bipolar d/o, severe anxiety/panic disorder with benzodiazepine dependence presents with evidence of early benzo withdrawal. #Benzodiazepine withdrawal: Stable on current regimen. She does have some insight into her addiction. - Ativan 2mg PO Q6h scheduled with 0.5mg PO q8h PRN available - Discontinue gabapentin (wasn't taking at home) - This is her 3rd admission for same in last month. I think we will continue this cycle of re-admissions unless we pursue a detoxification program. Patient is amenable to this. Will contact psychiatry re: resources. #Bipolar d/o - Continue home trileptal, dose confirmed with pharmacy #Hypokalemia - Replete, put on K protocol Diet: regular VTE ppx: SCDs Code: full Dispo: Continue inpatient status as unsafe to discharge at this time with benzodiazepine addiction and no follow up plan in place. Subjective: Had some hallucinations, felt loopy and confused after taking trileptal and gabapentin last night. Had some more nausea today. Much less motor difficulty. No seizures. Objective: Vital Signs Temp Pulse Resp BP Pulse Ox 37.2 C 75 18 106/73 97 02/27/18 13:59 02/27/18 13:59 02/27/18 13:59 02/27/18 13:59 02/27/18 13:59 Laboratory Results 02/27/18 03:53 02/26/18 02/27/18 02/28/18 05:59 05:59 05:59 Intake Total 1700 Balance 1700 - Physical Exam Constitutional: no apparent distress, appears nourished, not in pain Eyes: PERRL, anicteric sclera, EOMI Ears, Nose, Mouth, Throat: moist mucous membranes, hearing normal, ears appear normal, no oral mucosal ulcers Cardiovascular: regular rate and rhythym, no murmur, rub, or gallop Respiratory: no respiratory distress, no rales or rhonchi, clear to auscultation Gastrointestinal: normoactive bowel sounds, soft, non-tender abdomen, no palpable masses Skin: no rashes or abrasions, no fluctuance, no induration Neurologic: AAOx3, sensation intact bilaterally Psychiatric: interacting appropriately, not encephalopathic, thought process linear, anxious, other (tearful) ICD10 Worksheet Patient Problems: Problems Problem Status Onset Benzodiazepine withdrawal Acute Acute kidney injury Acute Alcohol abuse Acute Hypokalemia Acute
--- NOTE | 2018-02-27 16:33 | ASMTCMCOM ---
CM Note CM Note Notes: Patient plan of care reviewed in interdisciplinary rounds. 47 year old female having unsuccessful tapering from benzodiazepines. This is her 3rd hospitalization in a short period of time. Per Dr. Wall she and her are open to discussion regarding inpatient treatment. Informational materials provided to patient and she states that she has been to [facility] in the past and was not inclined to go there again. She is looking for reassurance that her medication will not be withdrawn but tapered. Discussed that would be unlikely in the setting of inpatient detoxification. Emotional support provided to her and her . They will discuss options and hopefully formulate a plan. CM available should other needs arise. Plan: TBD Date Signed: 02/27/2018 04:30 PM Electronically Signed By:Guerita Diop RN
[2018-02-27] MEDS ORDERED: POTASSIUM CL 10 MEQ TAB PO ONE (21:00)
[2018-02-28] MEDS: LORazepam 1 MG TAB PO SCH ×3 (01:09→13:29)
[2018-02-28] MEDS: OXcarbazepine 300 MG TAB PO SCH ×2 (01:10→08:53)
[2018-02-28] MEDS ORDERED: POTASSIUM CL 10 MEQ TAB PO ONE (07:23)
[2018-02-28 07:55] VITALS: BP 102/76
[2018-02-28] MEDS: POTASSIUM CL 20 MEQ/15 ML UDCUP PO SCH (08:53)
[2018-02-28] MEDS: LORazepam 0.5 MG TAB PO PRN (10:40)
--- NOTE | 2018-02-28 14:59 | ASDISCHSUM ---
Discharge Information Plan Status:Home with No Needs Medically Cleared to Leave:02/28/2018 Discharge Date:02/28/2018 CM D/C Disposition:Home, Routine, Self-Care ADT D/C Disposition:Home, Routine, Self-Care Projected Discharge Date:02/28/2018 Transportation at D/C: Discharge Delay Reason: Follow-Up Date:02/28/2018 Discharge Slot: Final Diagnosis: Placement Information Patient Contact Information Contact Name:LYNN Relationship:Connor Address:[address]: City:[place] Alternate Phone: State/Zip Code:[place] [address] Email: Financial Information Financial Class:BCOP Primary Plan Desc:[facility] Primary Plan Number:[id number] Secondary Plan Desc: Secondary Plan Number: Assessment Information LACE LACE Length of stay for Answers: 2 days current admission Acuity / Level of Answers: Yes Care: Did the patient have an inpatient admission? Comorbidities - select Answers: Opioid dependence all that apply / Chronic pain # of Emergency department Answers: 5-8 visits in the last 6 months Social determinants Answers: Mental health diagnosis (anxiety, depression, pers onality disorders, etc.) Score: 16 Date Signed: 02/28/2018 02:47 PM Electronically Signed By:Guerita Diop RN [facility] CM Progress Note CM Note CM Note Notes: Chart reviewed. Patient with known anxiety disorder, bipolar disorder on benzodiazepines with active withdrawal symptoms admitted via ED. Lives with her . Unclear whether she has psychiatric support for anxiety. No physical needs for [facility] noted at this time. CM to follow. Plan: TBD Date Signed: 02/26/2018 03:25 PM Electronically Signed By:Guerita Diop RN [facility] Progress Note CM Note CM Note Notes: Patient plan of care reviewed in interdisciplinary rounds. 47 year old female having unsuccessful tapering from benzodiazepines. This is her 3rd hospitalization in a short period of time. Per Dr. Wall she and her are open to discussion regarding inpatient treatment. Informational materials provided to patient and she states that she has been to [facility] in the past and was not inclined to go there again. She is looking for reassurance that her medication will not be withdrawn but tapered. Discussed that would be unlikely in the setting of inpatient detoxification. Emotional support provided to her and her . They will discuss options and hopefully formulate a plan. CM available should other needs arise. Plan: TBD Date Signed: 02/27/2018 04:30 PM Electronically Signed By:Guerita Diop RN [facility] Progress Note CM Note CM Note Notes: Patient seen by Roxie Valderrama RN for mental health services. She has been referred to Catrachito Gamino NP and has resources for other inpatient and outpatient treatment options. No other needs identified at this time. Plan: home independently with family support and outpatient referrals. Date Signed: 02/28/2018 12:52 PM Electronically Signed By:Guerita Diop RN Intervention Information
--- NOTE | 2018-02-28 17:05 | PDDCSUM ---
Discharge Summary Discharge Summary: Date of Admission: 02/26/2018 Date of Discharge: 02/28/2018 Consultants: behavioral health (Roxie Valderrmaa) Discharge Diagnoses: 1. Benzodiazepine withdrawal 2. Benzodiazepine addiction 3. Bipolar disorder 4. Panic disorder 5. Anxiety 6. Hypokalemia Brief Hospital Course: 47yo F with bipolar d/o, panic disorder, anxiety, benzo addiction and 2 recent hospitalizations for benzo withdrawal presented with motor incoordination, nausea/vomiting, headaches after running out of her ativan and unable to get new prescription. In the hospital, she was put back on previous dose of ativan, which is very high, at 2mg PO q6h. She lost contact with her prior psychiatrist at end of November and has been unable get established with new provider, hence her numerous admissions here. We spent quite a bit of time making sure that she has follow up. She met with Roxie Valderrama and case management. She has an intake appointment with [facility] Juliet Busch at the [facility] on 03/16. She was also given resources for 2 intensive outpatient detoxification as well as inpatient detoxification programs (she was not very interested in these as they haven't worked in the past for her). She was also strongly advised to get a therapist. I have prescribed her ativan 2mg PO q6h #36 so she can get to her appointment next week with her PCP Dr Andrade with plan for Dr Andrade to bridge the gap before establishing with psychiatry. We continued her trileptal for her bipolar disorder. Medications: Please refer to EMR. Changes this admission include prescription for ativan. Follow Up Plan: 1. PCP visit with Dr Andrade early next week 2. 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 Obtain therapist Physical Exam: Vitals reviewed and stable. Alert and oriented without neurologic deficits. RRR, lungs clear, abdomen soft and nontender, no rashes.
== END 2018-02-28 16:46 | disposition home or self-care (01) | DRG 897 ==
LOC: F1N 12:12
PROVIDERS: ADMIT Internal Medicine; ATTEND Internal Medicine
DX: F13.239 Sedative, hypnotic or anxiolytic dependence with withdrawal, unspecified (principal); F31.9 Bipolar disorder, unspecified; F41.0 Panic disorder [episodic paroxysmal anxiety]; E87.6 Hypokalemia; E86.9 Volume depletion, unspecified
CPT/HCPCS: 96374; J2060; J2405